=== PATIENT | male | born 1975 | race Caucasian/White ===

== ENCOUNTER 2016-03-24 11:51 | Inpatient (IN) | payer OTHER ==
[2016-03-24] VITALS (8 sets, daily range): BP systolic 133–173; BP diastolic 88–118
[~2016-03-24] VITALS: Ht 180.3 cm; Wt 81.6 kg
[~2016-03-24 11:51] MED LIST: AMLODIPINE BESYL5 M1 PO; ATIVAN0.5 M1 PO; ATIVAN0.5 MG PO; B-1100 MG PO; FOLIC ACID1 M1 PO; HYDROCHLOROTH12.5 M3 PO; LOPRESSOR 12.12.5 MG PO; LORAZEPAM1 MG PO; Theragran Vitamins PO; ZONISAMIDE50 M1 PO
--- NOTE | 2016-03-24 11:56 | NUR ---
40 Y/O MALE REQUESTING DETOX FROM ALCOHOL - DRINKS 10-20 BEERS DAILY, HAS BEEN DRINKING FOR YEARS. LAST DRINK 24 HOURS AGO. ADMITS TO HX SEIZURES, LAST SEIZURE, "POSSIBLY 2 DAYS AGO" - PT STATES HE FELL 2 DAYS AGO AND IS UNSURE IF HE HAD A SEIZURE, BRUISING NOTED TO L EAR. DENIES FEELING TREMULOUS AT THIS TIME. DENIES DRUG USE. DENIES SI/HI.
--- NOTE | 2016-03-24 12:19 | NUR ---
PT TO [facility] A SECURITY PAIGED FOR WANDING
--- NOTE | 2016-03-24 12:21 | ED PSYCHIATRIC COMPLAINT ---
History of Present Illness General Chief Complaint: ETOH/Drug Related Complaint Stated Complaint: ETOH DETOX Source: patient Exam Limitations: poor historian Vital Signs & Intake/Output Vital Signs & Intake/Output Vital Signs Date Time Temp Pulse Resp B/P Pulse O2 O2 Flow FiO2 Ox Delivery Rate 03/24 2111 142/84 03/24 2055 97.5 90 16 173/98 96 Room Air 03/24 2054 89 16 173/98 03/24 1930 97.3 90 16 138/89 96 03/24 1853 98.6 98 19 133/92 03/24 1853 98.6 98 133/92 03/24 1744 100.0 102 22 139/88 99 Room Air 03/24 1742 100.0 102 22 139/88 03/24 1628 99.8 106 18 141/88 100 Room Air 03/24 1620 99.8 106 22 141/88 03/24 1514 98.8 94 18 146/96 03/24 1514 98.8 86 18 146/96 99 Room Air 03/24 1447 97.5 114 20 158/88 97 Room Air 03/24 1445 97.5 114 20 158/88 03/24 1156 98.0 128 18 163/118 03/24 1156 98.0 128 18 163/118 96 Room Air Allergies Coded Allergies: kiwi (MOUTH BUBBLES UP PER PT 03/24/16) latex (RED, ITCHY 03/24/16) Reconcile Medications Ascorbate Calcium (Vitamin C) (Unknown Strength) TABLET (Unknown Dose) PO DAILY SUPPLEMENT (Reported) Aspirin (Ecotrin*) 81 MG TABLET.DR 1 TAB PO DAILY HEART/BLOOD (Reported) Cholecalciferol (Vitamin D3) (Unknown Strength) TABLET (Unknown Dose) PO DAILY SUPPLEMENT (Reported) Cyanocobalamin (Vitamin B-12) (Unknown Strength) TABLET (Unknown Dose) PO DAILY SUPPLEMENT (Reported) Triage Note: 40 Y/O MALE REQUESTING DETOX FROM ALCOHOL - DRINKS 10-20 BEERS DAILY, HAS BEEN DRINKING FOR YEARS. LAST DRINK 24 HOURS AGO. ADMITS TO HX SEIZURES, LAST SEIZURE, "POSSIBLY 2 DAYS AGO" - PT STATES HE FELL 2 DAYS AGO AND IS UNSURE IF HE HAD A SEIZURE, BRUISING NOTED TO L EAR. DENIES FEELING TREMULOUS AT THIS TIME. DENIES DRUG USE. DENIES SI/HI. Triage Nurses Notes Reviewed? yes HPI: 03/25/16 1 PM 40-year-old male presents to the emergency department for alcohol withdrawal requesting detox. The patient states he drinks every day. His last drink was yesterday. He says he thinks he had a seizure 2 days ago. He has a left periorbital ecchymosis. Left auricular ecchymosis. No septal necrosis. He also has ecchymosis to the right anterior chest. The onset of the symptoms were abrupt, the duration is really unknown, the severity is significant as his symptoms required to come to the emergency department for care. Past History Travel History Traveled to [facility] past 21 day No Medical History Any Pertinent Medical History? see below for history Neurological: seizure EENT: NONE Cardiovascular: hypertension Respiratory: NONE Gastrointestinal: NONE Hepatic: NONE Renal: NONE Musculoskeletal: disk herniation Psychiatric: NONE Endocrine: NONE Blood Disorders: DVT RT UPPER SHOULDER 1992 Cancer(s): NONE TOUR COORDINATOR/Reproductive: NONE History of MRSA: No History of VRE: No History of CDIFF: No Surgical History Surgical History: DISCECTOMY Psychosocial History Who do you live with Patient/Self Services at Home None What is your primary language Citizen Of [place] Tobacco Use: Current Daily Use Daily Tobacco Use Amount/Type: => 5 Cigarettes daily Family History Hx Contributory? No Review of Systems Review of Systems Constitutional: Denies: fever. EENTM: Denies: visual changes. Cardiovascular: Denies: chest pain. GI: Denies: abdominal pain. Genitourinary: Reports: no symptoms. Musculoskeletal: Reports: muscle stiffness. Skin: Denies: rash. Neurological/Psychological: Reports: anxiety, confusion, tremors. Denies: headache. Hematologic/Endocrine: Reports: bruising. Denies: bleeding. Immunologic/Allergic: Reports: no symptoms. Physical Exam Physical Exam General Appearance: well developed/nourished, no apparent distress, alert, awake , anxious Head: atraumatic Eyes: Bilateral: PERRL, EOMI. Ears, Nose, Throat: nasal congestion Neck: supple, full range of motion Respiratory: normal breath sounds, chest non-tender, no respiratory distress Cardiovascular: regular rate/rhythm Gastrointestinal: non-tender Extremities: normal range of motion Neurological/Psychiatric: awake, agitated, alert, anxious Appearance/Memory/Insight: disheveled Behavoir/Eye Contact/Speech: cooperative Skin: ecchymosis SAD PERSONS SAD PERSONS Response Value Male Sex? yes 1 Excessive Ethanol/Drug Use? yes 1 Single//? yes 1 Social Support? has no support 1 Total 4 SAD PERSONS Done? yes, patient not suicidal Progress Differential Diagnosis: drug intoxication, drug overdose, drug withdrawal, electrolyte abnormality, encephalitis, hypoglycemia, hypothyroidism, IC hem/mass /tumor, meningitis Plan of Care: Orders Procedure Date/time Status Nothing by Mouth 03/25 B Active PROTHROMBIN TIME 03/25 0500 Active MAGNESIUM 03/25 0500 Active HEPATIC FUNCTION PANEL 03/25 0500 Active CBC WITHOUT DIFFERENTIAL 03/25 0500 Active BASIC ELECTROLYTES PLUS BUN&CR 03/25 0500 Active Regular Diet 03/24 D Complete AMMONIA LEVEL 03/24 2015 Active Lab Add-on Test 03/24 1925 Active Pathway - chart 03/24 192 Active House Staff 03/24 192 Active Patient Data 03/24 192 Active SOCIAL WORK CONSULT 03/24 192 Active Code Status 03/24 192 Active Patient Data 03/24 191 Active Continuous Observation Monitor 03/24 1847 Active Admit to inpatient 03/24 1820 Active Vital Signs 03/24 1820 Active Code Status 03/24 1820 Complete Pathway - chart 03/24 1635 Active CIWA 03/24 1635 Active Pathway - chart 03/24 1634 Active CASE MANAGEMENT CONSULT 03/24 1632 Active MAGNESIUM 03/24 1354 Active FOLIC ACID 03/24 1354 Active VITAMIN B12 03/24 1354 Active CASE MANAGEMENT CONSULT 03/24 1304 Active Add-on Test (ER Only) 03/24 1303 Active Seizure Precautions 03/24 1303 Active CIWA 03/24 1303 Active LIPASE 03/24 1303 Active ETHANOL 03/24 1303 Active COMPREHENSIVE METABOLIC PANEL 03/24 1303 Active CBC WITHOUT DIFFERENTIAL 03/24 1303 Complete AMYLASE 03/24 1303 Active EKG 03/24 1303 Active Intake & Output 03/24 1232 Active URINE DRUG SCREEN FOR ER ONLY 03/24 1232 Complete URINALYSIS 03/24 1232 Complete Lab Add-on Test 03/24 UNK Active VTE Mechanical Prophylaxis 03/24 UNK Active Laboratory Tests 03/24/16 2016: Anion Gap 16, Estimated GFR > 60, BUN/Creatinine Ratio 36.0 H, Glucose 89, Calcium 9.8, Magnesium Pending, Total Bilirubin 1.5 H, AST 286 H, ALT 120 H, Alkaline Phosphatase 69, Ammonia 39 H, Total Protein 6.9, Albumin 4.4, Globulin 2.5, Albumin/Globulin Ratio 1.8, Amylase 93, Lipase 592 H, Vitamin B12 Pending, Folate Pending, Serum Alcohol < 10.0 03/24/16 1354: CBC w Diff NO MAN DIFF REQ, RBC 3.11 L, MCV 98.1 H, MCH 33.4 H, RDW 16.5 H, MPV 7.9, Gran % 72.6, Lymphocytes % 18.0 L, Monocytes % 9.0, Eosinophils % 0.2, Basophils % 0.2, Absolute Granulocytes 3.4, Absolute Lymphocytes 0.9 L, Absolute Monocytes 0.4, Absolute Eosinophils 0, Absolute Basophils 0, PUBS MCHC 34.1 03/24/16 1236: Urine Opiates Screen 228.00, Methadone Screen < 40, Barbiturate Screen < 60, Ur Phencyclidine Scrn < 6.00, Amphetamines Screen < 100, U Benzodiazepines Scrn < 85, Urine Cocaine Screen < 50, Urine Cannabis Screen < 5.00, Urinalysis LIGHT H , Urine Color JACQUELINE, Urine Clarity CLEAR, Urine pH 6.0, Ur Specific [place] 1.025, Urine Protein 30 H, Urine Ketones 15 H, Urine Nitrite NEG, Urine Bilirubin NEG@ICTO, Urine Urobilinogen 1.0, Ur Leukocyte Esterase NEG, Ur Microscopic SEDIMENT EXAMINED, Urine RBC 3-5, Urine WBC RARE, Ur Epithelial Cells FEW, Urine Mucus MANY H, Urine Hemoglobin SMALL H, Urine Glucose NEG Initial ED EKG: NSR Departure Departure Disposition: STILL A PATIENT Condition: Stable Clinical Impression Primary Impression: Alcohol withdrawal Secondary Impressions: Alcohol hallucinosis Referrals: PATIENT HAS NO PRIMARY CARE DR (PCP/Family) Departure Forms: Customer Survey General Discharge Information Comments CT scan IMPRESSION: No acute intracranial process or discrete facial bone fracture. DICTATED BY: ENRIQUE LITTLE MD DATE/TIME DICTATED:03/24/161340 AGILE TESTER:PHILIP DATE/TIME TRANSCRIBED:03/24/161340 CONFIDENTIAL, DO NOT COPY WITHOUT APPROPRIATE AUTHORIZATION. <Electronically signed in Other Vendor System> SIGNED BY: ENRIQUE LITTLE MD 03/24/16 1351 Admission Note Spoke With: WENDY MCMAHON MD Documentation of Exam: Documentation of any treatments & extenuating circumstances including Concerns Regarding Discharge (functional status, medication knowledge or non-compliance, living conditions, etc.) that warrant an admission rather than observation: [The patient needs admission for IV Ativan, neuro checks every 4 hours, ICU level care] Alcohol Withdrawl Admission ED Alcohol Detox Admission d/t: DTs/Seizure w/i last year, Alcohol Hallucinosis
--- NOTE | 2016-03-24 12:30 | NUR ---
SECURITY AT BEDSIDE WANDING PT PT STS DENIES ANY SI/HI AT PRESENT STS HE HAS WITHDRAWAL SEIZURES AND UNSURE IF THE BRUISING TO HIS LEFT EAR AND EYE ARE FROM UNKNOWN AND UNWITNESSED SIEZURE. PT CHANGING NOW
--- NOTE | 2016-03-24 12:40 | NUR ---
MD LION AT BEDSIDE TO EVAL PT PT WAS HAVING A HARD TIME TAKING HAT OFF AND ENCOURAGED PT TO TAKE OFF
[2016-03-24] MEDS ORDERED: ASPIRIN EC81 M1 PO (12:41)
[2016-03-24] MEDS ORDERED: VITAMIN B-121000 MC3 PO (12:42)
[2016-03-24] MEDS ORDERED: VITAMIN C500 M6 PO (12:42)
[2016-03-24] MEDS ORDERED: VITAMIN D31000 UNI2 PO (12:42)
--- NOTE | 2016-03-24 13:39 | RADIOLOGY REPORT ---
EXAMINATION: XR CHEST CLINICAL INFORMATION: Fall. Evaluate for fracture. COMPARISON: None. TECHNIQUE: PA and lateral views of the chest were obtained. FINDINGS: The lungs are well expanded. There is no focal consolidation, edema, or effusion. No pneumothorax. The cardiomediastinal silhouette is within normal limits. No acute osseous abnormality. IMPRESSION: Clear lungs. No displaced fractures are seen.
--- NOTE | 2016-03-24 13:51 | CT SCAN REPORT ---
EXAMINATION: CT HEAD WITHOUT CONTRAST CT FACIAL BONES WITHOUT CONTRAST CLINICAL INFORMATION: 40-year-old man with fall. COMPARISON: None. TECHNIQUE: Imaging was performed from the skull base to vertex without intravenous administration of contrast. In addition, helical noncontrast CT imaging was acquired through the facial bones and source images were reviewed along with axial reconstructions and sagittal and coronal MPRs. DLP: 742 mGy-cm FINDINGS: HEAD: No intracranial mass, hemorrhage, or midline shift is visualized. The ventricles and sulci are prominent for the patient's age, suggesting chronic volume loss. No extra-axial collections are identified. FACIAL BONES: There is no evidence of an acute facial bone fracture. Minimal mucosal thickening is seen along the floor of the right maxillary sinus. No significant dental disease is visualized. The orbits are unremarkable in appearance. A benign-appearing fibro-osseous lesion is seen in the right frontal bone lateral to the right frontal sinus and above the right orbit, measuring about 1.5 cm in diameter, perhaps reflecting focal fibro-osseous dysplasia or a hemangioma. IMPRESSION: No acute intracranial process or discrete facial bone fracture.
--- NOTE | 2016-03-24 14:00 | NUR ---
LABS DRAWN BY MARIKA RIVAS
[2016-03-24 14:12] LABS: ABSOLUTE BASOPHIL COUNT 0 /CUMM (0.0-0.2); ABSOLUTE EOSINOPHIL COUNT 0 /CUMM (0.0-0.7); ABSOLUTE GRANULOCYTE CT 3.4 /CUMM (1.4-6.5); ABSOLUTE LYMPH COUNT 0.9 /CUMM (1.2-3.4); ABSOLUTE MONOCYTE COUNT 0.4 /CUMM (0.10-0.60); BASOPHIL % 0.2 % (0.0-2.0); EOSINOPHIL % 0.2 % (0-5); GRANULOCYTE % 72.6 % (42.2-75.2); HEMATOCRIT 30.5 % (42-52); MEAN CORPUSCULAR HGB 33.4 PG (27.0-31.0); MEAN CORPUSCULAR HGB CONC 34.1 G/DL (33.0-37.0); MEAN CORPUSCULAR VOLUME 98.1 FL (80.0-94.0); MEAN PLATELET VOLUME 7.9 FL (7.4-10.4); RBC DISTRIBUTION WIDTH 16.5 % (11.5-14.5); RED BLOOD CELL CT 3.11 /CUMM (4.70-6.10); WHITE BLOOD CELL COUNT 4.8 /CUMM (4.8-10.8)
[2016-03-24 14:19] LABS: PLATELET COUNT 70 /CUMM (130-400)
--- NOTE | 2016-03-24 14:42 | NUR ---
PT MEDICATED WITH NICOTINE PATCH TO LT SHOULDER ORDERED
--- NOTE | 2016-03-24 14:58 | NUR ---
PT SHOWS NO S/S OF DETOX AT PRESENT
--- NOTE | 2016-03-24 15:33 | NUR ---
PT GIVEN MEAL TRAY
--- NOTE | 2016-03-24 16:09 | NUR ---
PT NOTED CROUCHING ON FLOOR BY SECURITY, WHEN ASKED BY SECURITY WHAT HE WAS DOING PT STS HE WAS LOOKING FOR HIS SLIPPERS. THIS NURES ADDRESSED PT AND HE INSISTED THAT HE HAD TWO SLIPPERS ON THE FLOOR AND WAS LOOKING FOR IT. PT REDIRECTED AND MD INFORMED OF PT'S ACTION AND VITALS TAKEN
--- NOTE | 2016-03-24 16:20 | NUR ---
PT CONTINUES TO HAVE CONVERSATION WITH HIMSELF REDIRECTED AND MD AGAIN INFORMED OF NEEDING MEDS FOR PT
--- NOTE | 2016-03-24 16:50 | NUR ---
PT MEDICATED ORDERED
--- NOTE | 2016-03-24 17:15 | NUR ---
PT WAS A DIFFICULT STICK AND ANOTHER NURSE ATTEMPTED TWICE WITH NO SUCCESS. ATTEMPTED AND IV ESTABLISHED. PT NOTED TO BE VERY PARANOID AND REQUESTING TO CALL FAMILY AND REFUSING IV MEDICATION. SECURITY CALLED AND PT AFTER SPEAKING WITH SISTER AGREEABLE TO TAKE MEDICATION AND REDIRECTABLE
--- NOTE | 2016-03-24 17:23 | NUR ---
PT CONTINUES TO VERBALLY HALLUCINATE IN [facility] WAY AND SPEAKING TO SELF.
--- NOTE | 2016-03-24 17:27 | NUR ---
03/24 CASE MGMT- PT REQUESTING ETOH DETOX CIWA 16 [address] [facility] AUTH REQUEST PENDING. CASE MGMT WILL CONTINUE TO FOLLOW.
--- NOTE | 2016-03-24 18:05 | NUR ---
PT MOVED TO A ROOM AND NOTED TO BE SHAKING BUT NO SEIZURE ACTIVITY NOTED. PT WAS MEDICATED AGAIN AND PLACED ON MONITOR AND ATTEMPTING TO REDIRECT WITH VISUAL HALLUCINATION. MD INFORMED OF PT'S STATUS
--- NOTE | 2016-03-24 18:16 | NUR ---
PT CONTINUES TO VISUALLY HALLUCINATE AND HANVING A CONVERSATION WITH SELF. SITTER NOW AT BEDSIDE WITH PT
--- NOTE | 2016-03-24 18:40 | NUR ---
HOUSE STAFF ATTEMPTED TO EVAL PT
--- NOTE | 2016-03-24 19:13 | Admission Certification ---
Admission Certification Certification Statement - As attending physician, I certify that at the time of - admission, based on clinical presentation, severity of - symptoms, need for further diagnostic testing and - therapeutic interventions, and risk of adverse outcomes - without in-hospital treatment, in my clinical assessment, - this patient requires an acute hospital stay for a minimum - of two nights or longer. I have also considered psychsocial - factors such as support system, advanced age, financial - issues, cognitive issues, and failed out-patient treatments, - past re-admission history, safety of patient, and lack of - compliance as applicable. Specific rationale supporting this admission is: Alcohol withdrawal requiring ativan drip.
--- NOTE | 2016-03-24 19:30 | NUR ---
PT SLEEPING. AROUSABLE TO TACTILE STIMULATION. RESP UNLABORED. NSR ON THE MONITOR. VSS. WILL CONTINUE TO MONITOR.
--- NOTE | 2016-03-24 19:54 | History & Physical ---
MARIMAR FOSS 03/24/161930: General Information and HPI Source of Information: family, old records Exam Limitations: confusion History of Present Illness: He is 40-year-old male with past medical history of alcohol abuse and multiple previous hospital admissions for alcohol detox, alcohol withdrawal seizures, left upper extremity spontaneous DVT (was on Coumadin for 1 year), history of hypertension not taking any antihypertensive now (was prescribed HCTZ and amlodipine), history of back surgery for herniated disc was brought in by sister and Aunt for alcohol detox. Upon my evaluation patient was completely confused and hallucinating. I called his sister Ayse ([phone]). According to his sister patient drinks heavy amount of alcohol every day and he has been drinking for last 20 years. He is also turned every day smoker. Smokes half pack per day for last 20 years. Patient had a fall 3 weeks ago and broke his front tooth. He went to [facility] oral clinic yesterday where he was found tachycardiac and sent to ER for evaluation from where he was admitted in [facility] as he had a fall again within 2 days resulting in left eye and ear bruise. She also reported that she saw him totally intoxicated 3 days ago and she was also suspecting that he might have a seizure that resulted in his fall and bruises. She does not know what treatment he got at [facility] but thinks that he was treated for alcohol detox. He stayed there only for 14 hours and left AMA this morning. He saw him walking in the house confused with unsteady gait. He was disoriented. After she talked to him he was willing to go to hospital for detox. Sister also reports that his last drink was yesterday. He saw 2 gallons of vodka in his room and 1 was empty. On his previous admissions he has always been referred to intensive outpatient programs and [facility] meetings but he never followed up with them in past. She denies that he takes any recreational drugs but also says that he always lies. He lives with his father. Unemployed for last 6 months. In ER initially he was oriented but later on started having visual hallucinations and confusion. He was given total 6 mg of Ativan in ER. A safety monitor was at bedside. Allergies/Medications Allergies: Coded Allergies: kiwi (MOUTH BUBBLES UP PER PT 03/24/16) latex (RED, ITCHY 03/24/16) Home Med list Ascorbate Calcium (Vitamin C) (Unknown Strength) TABLET (Unknown Dose) PO DAILY SUPPLEMENT (Reported) Aspirin (Ecotrin*) 81 MG TABLET. 1 TAB PO DAILY HEART/BLOOD (Reported) Cholecalciferol (Vitamin D3) (Unknown Strength) TABLET (Unknown Dose) PO DAILY SUPPLEMENT (Reported) Cyanocobalamin (Vitamin B-12) (Unknown Strength) TABLET (Unknown Dose) PO DAILY SUPPLEMENT (Reported) Compliance With Home Meds: UNKNOWN Past History Travel History Traveled to [place] past 21 day No Medical History Neurological: seizure EENT: NONE Cardiovascular: hypertension Respiratory: NONE Gastrointestinal: NONE Hepatic: NONE Renal: NONE Musculoskeletal: disk herniation Psychiatric: NONE Endocrine: NONE Blood Disorders: DVT RT UPPER SHOULDER 1991 Cancer(s): NONE 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 Ambulation: independent IADLs Independent: shopping, housework, finances, food prep, telephone, transportation , medication admin. Employment History Employment Unemployed Review of Systems Review of Systems Constitutional: Reports: see HPI. Exam & Diagnostic Data Last 24 Hrs of Vital Signs/I&O Vital Signs Date Time Temp Pulse Resp B/P Pulse O2 O2 Flow FiO2 Ox Delivery Rate 03/24 185 98.6 98 19 133/92 03/24 1853 98.6 98 133/92 03/24 1744 100.0 102 22 139/88 99 Room Air 03/24 1742 100.0 102 22 139/88 03/24 1628 99.8 106 18 141/88 100 Room Air 03/24 1620 99.8 106 22 141/88 03/24 1514 98.8 94 18 146/96 03/24 1514 98.8 86 18 146/96 99 Room Air 03/24 1447 97.5 114 20 158/88 97 Room Air 03/24 1445 97.5 114 20 158/88 03/24 1156 98.0 128 18 163/118 03/24 1156 98.0 128 18 163/118 96 Room Air Intake & Output 03/24 1600 03/24 0800 03/24 0000 Intake Total Output Total 1 Balance -1 Output, Urine 1 Patient 161 lb Weight Physical Exam General Appearance confused, hallucinating Skin left eye and left ear bruises. scratches on left arm , large bruise right armpit Neck Supple Cardiovascular No Murmurs, tachycardia Lungs Clear to Auscultation Abdomen Soft, No Tenderness, non distended, no stigmata of liver disease Neurological confused, disoriented, unable to follow commands Extremities No Edema Last 24 Hrs of Labs/Noah: Laboratory Tests 03/24/16 1354: Anion Gap 16, Estimated GFR > 60, BUN/Creatinine Ratio 36.0 H, Glucose 89, Calcium 9.8, Total Bilirubin 1.5 H, AST 286 H, ALT 120 H, Alkaline Phosphatase 69, Total Protein 6.9, Albumin 4.4, Globulin 2.5, Albumin/Globulin Ratio 1.8, Amylase 93, Lipase 592 H, Vitamin B12 Pending, Folate Pending, CBC w Diff NO MAN DIFF REQ, RBC 3.11 L, MCV 98.1 H, MCH 33.4 H, RDW 16.5 H, MPV 7.9, Gran % 72.6, Lymphocytes % 18.0 L, Monocytes % 9.0, Eosinophils % 0.2, Basophils % 0.2, Absolute Granulocytes 3.4, Absolute Lymphocytes 0.9 L, Absolute Monocytes 0.4, Absolute Eosinophils 0, Absolute Basophils 0, PUBS MCHC 34.1, Serum Alcohol < 10.0 03/24/16 1236: Urine Opiates Screen 228.00, Methadone Screen < 40, Barbiturate Screen < 60, Ur Phencyclidine Scrn < 6.00, Amphetamines Screen < 100, U Benzodiazepines Scrn < 85, Urine Cocaine Screen < 50, Urine Cannabis Screen < 5.00, Urinalysis LIGHT H , Urine Color JACQUELINE, Urine Clarity CLEAR, Urine pH 6.0, Ur Specific Peterman 1.025, Urine Protein 30 H, Urine Ketones 15 H, Urine Nitrite NEG, Urine Bilirubin NEG@ICTO, Urine Urobilinogen 1.0, Ur Leukocyte Esterase NEG, Ur Microscopic SEDIMENT EXAMINED, Urine RBC 3-5, Urine WBC RARE, Ur Epithelial Cells FEW, Urine Mucus MANY H, Urine Hemoglobin SMALL H, Urine Glucose NEG Diagnostic Data EKG Results Normal sinus rhythm with heart rate [address]-T wave changes QTc 455 CXR Results Normal Other Results Maxillofacial and head CT did not show any acute pathology Assessment/Plan Assessment: He is 40-year-old male with past medical history of heavy alcohol abuse and multiple previous hospital admissions for alcohol detox, alcohol withdrawal seizures, left upper extremity spontaneous DVT, hypertension is going to be admitted in critical care unit with 1. Alcohol withdrawal syndrome. Confusion and hallucination with high CIWA scores. Needing Ativan drip. Last drink yesterday. 2. Alcoholic hepatitis 3. Macrocytic anemia due to alcohol abuse 4. Thrombocytopenia. Most likely due to alcohol abuse 5. U tox mildly positive for opiates. Patient was at [facility] for alcohol detox. Left AMA this morning. Might got opiates in hospital. Sister denies any recreational of drug use. 6. Fall resulting in multiple bruises. ? seizure and then fall. CT head and maxillofacial CT are negative for any fractures or bleed. 7. History of hypertension. Blood pressure was high upon admission, 163/118 and later on came down to 133/92. We'll hold antihypertensives for now. Monitor vitals closely. CIWA protocol. Will start him on Ativan drip with slow rate and titrate up accordingly. Banana bag. Continue sitter. Keep patient nothing by mouth. Fall and seizure precautions. In case of agitation or irritability can give him small dose of Haldol. QTc 455. Will monitor platelet count. No evidence of active bleeding. Monitor LFTs daily. Will check coags in a.m. Will also check vitamin B12 and folate. Social work consult. Alps for DVT prophylaxis. Full code. As Ranked By This Provider Problem List: 1. Alcohol withdrawal syndrome 2. Alcoholic hepatitis Core Measures/Miscellaneous Acute Coronary Syndrome ACS Diagnosis: No Cerebrovascular Accident CVA/TIA Diagnosis: No Congestive Heart Failure CHF Diagnosis: No Venous Thromboembolism VTE Risk Factors: Acute medical illness, Previous VTE, Smoking VTE Prophylaxis Ordered Inpt: Mechanical (ALPS/TEDS) No Mech VTE prophylaxis d/t: No contraindications No VTE Pharm Prophylaxis d/t: Medical contraindication (throbocytopenia) VTE Diagnosis: No VTE Type: NONE VTE Confirmed by (Test): NONE Severe Sepsis Severe Sepsis Present: No Septic Shock Septic Shock Present: No Miscellaneous Documentation Attending Case Discussed With: EBENEZER MCMAHON MDMIKE Primary Care Physician: PATIENT HAS NO PRIMARY CARE DR Patient sees these Specialists none Level of Patient Care: Critical Care (CRI) LISANDRO LA, [facility] 03/25/16 0056: Attending MD Review Statement Attending Statement Attending MD Statement: examined this patient, discuss w/resident/PA/SHELTER CASE MANAGER, agreed w/resident/PA/SHELTER CASE MANAGER Attending Assessment/Plan: 40 yo M smoker, with h/o alcohol dependence, multiple detoxes in the past (last Nov 2015), alcohol withdrawal seizures, HTN (not on meds), previous DVT, brought in by family for alcohol detox. Per our ER records, patient was oriented on ER arrival and reported a seizure 2 days ago. However, he became confused and started hallucinating few hours later. Hence, history obtained from sister. Apparently patient lives by self and has been consuming about alcohol everyday, unclear as to the amount and the last drink. Patient had a fall 3 weeks ago, fell to his face and broke his tooth. Sister recollects that she had not seen the bruise 3 days ago when she saw him at their uncle's . So most likely he fell 2 days ago, ?seizure - bruising his left eye and ear. Yesterday, he was admitted to [facility] for alcohol detox but he left AMA. Unable to obtain ROS. VSS. Exam: awake, lethargic, confused, mumbling words, not making sense, left periorbital and left auricular ecchymosis, large right chest (under armpit) hematoma. Very dry mucuous membranes. No obvious tongue bite. No pallor or jaundice. Chest clear, Heart S1S2 tachycardic. Abd soft, NT. Labs: macrocytic anemia, Plt 70, Na 136, T. bili 1.5, AST 286, ALT 120, ammonia 39, lipase 592, Urine ketones+, Utox neg, Alcohol < 10, CXR clear, CT head/facial bones no acute fracture or IC process. EKG: Sinus tachycardia. 1. Alcohol withdrawal/ hallucinosis with impending DT's. ICU admit, CIWA, aspiration, fall and seizure precautions, IV Ativan titrate based on CIWA, banana bag, NPO for now, IV fluids, IV PPI, Psych and social work consult when able. Maintain sitter for safety. Monitor BP, no need for anti-hypertensive at this point. 2. Alcoholic liver disease with transaminitis. Trend LFTs. Hep panel (Nov 2015) was negative. Consider RUQ ultrasound to assess liver architexture when patient more stable. 3. Thrombocytopenia and macrocytic anemia in the setting of alcohol use. Check peripheral smear and PT/INR. Check TSH, B12, folic acid. 4. Large right chest hematoma in the setting of recent seizure/ unwitnessed fall. Monitor, avoid aspirin or any other blood products. 5. Lipase not significant enough to diagnose pancreatitis. DVT ppx Alps. Full code. TTS > 45 mins
--- NOTE | 2016-03-24 20:23 | NUR ---
PHARMACY WORKING ON ATIVAN DRIP. WILL BRING UP WHEN READY
--- NOTE | 2016-03-24 20:30 | NUR ---
VJ MARTINEZ Nurse Note by: DAISY SANDHU I agree with the PAYROLL LEAD findings/evaluation of this patient's condition. Entered by: DAISY SANDHU Date: 03/24/16 Time: 2030
--- NOTE | 2016-03-24 20:31 | NUR ---
PT HAS BED ASSIGNMENT 108
--- NOTE | 2016-03-24 21:21 | NUR ---
ATIVAN AND VITAMIN BAG INFUSING. RESP UNLABORED. NSR NO APPARENT DISTRESS
--- NOTE | 2016-03-24 22:00 | NUR ---
ADMISSION NOTE- Patient arrived to ICU at 2200. He is transferred to ICU bed and placed on monitors without incident. Patient is visually hallucinating and is seen picking at the air and talking about objects that are not visible to staff. There is a 1:1 sitter at the bedside for impending withdrawals and history of seizures. He is drowsy but arousable on the Ativan gtt, and has a SAS score of 3. Patient is SR/ST on the monitor and BP is 150/100. Patient is on RA with O2 sats 96-98%, lungs CTA. There are 2 patent IV's placed, the Ativan gtt is at 2mg/hr, Banana bag at 125ml/hr and D5-1/2NS at 75ml/hr. Patient is able to void in the urinal after some encouragement. Patient has many bruised areas including: left ear, left eye, left forearm, right shoulder and underarm, and right mid-abdomen on the rib line. There is a scratch noted within the bruise on the Left Forearm. Per patient, all bruises are from falls. While asking patient admitting questions, it was difficult to keep patient stimulated and awake and several items he was unable to answer. Will follow up when off sedation. Will cont to monitor.
[2016-03-25] VITALS (9 sets, daily range): BP systolic 114–150; BP diastolic 64–87
[2016-03-25 05:16] LABS: ABSOLUTE BASOPHIL COUNT 0 /CUMM (0.0-0.2); ABSOLUTE EOSINOPHIL COUNT 0 /CUMM (0.0-0.7); ABSOLUTE LYMPH COUNT 1.1 /CUMM (1.2-3.4); ABSOLUTE MONOCYTE COUNT 0.3 /CUMM (0.10-0.60); BASOPHIL % 0.9 % (0.0-2.0); EOSINOPHIL % 0.7 % (0-5); GRANULOCYTE % 57.3 % (42.2-75.2); HEMATOCRIT 29.6 % (42-52); MEAN CORPUSCULAR HGB 34.2 PG (27.0-31.0); MEAN CORPUSCULAR HGB CONC 34.6 G/DL (33.0-37.0); MEAN CORPUSCULAR VOLUME 98.8 FL (80.0-94.0); MEAN PLATELET VOLUME 7.9 FL (7.4-10.4); PLATELET COUNT 68 /CUMM (130-400); RBC DISTRIBUTION WIDTH 17.1 % (11.5-14.5); WHITE BLOOD CELL COUNT 3.5 /CUMM (4.8-10.8)
[2016-03-25 05:18] LABS: PT 10.2 SEC (9.4-12.5)
--- NOTE | 2016-03-25 06:35 | NUR ---
0545- Patient is have periods of apnea and is desatting to 87-90%. Patient placed on 2LNC. Will cont to monitor.
--- NOTE | 2016-03-25 08:20 | Cons- CRCU ---
CLARIBEL FAROOQ 03/25/16 0817: General Information and HPI Consulting Request Date of Consult: 03/25/16 Requested By: Dr. Jones Reason for Consult: Alcohol withdrawl Source of Information: old records Exam Limitations: clinical condition History of Present Illness: He is 40-year-old male with past medical history of alcohol abuse and multiple previous hospital admissions for alcohol detox, alcohol withdrawal seizures, left upper extremity spontaneous DVT (was on Coumadin for 1 year), history of hypertension not taking any antihypertensive now (was prescribed HCTZ and amlodipine), history of back surgery for herniated disc was brought in by sister and Aunt for alcohol detox. Upon my evaluation patient was completely confused and hallucinating. I called his sister Ayse ([phone]). According to his sister patient drinks heavy amount of alcohol every day and he has been drinking for last 20 years. He is also turned every day smoker. Smokes half pack per day for last 20 years. Patient had a fall 3 weeks ago and broke his front tooth. He went to [facility] oral clinic yesterday where he was found tachycardiac and sent to ER for evaluation from where he was admitted in [facility] as he had a fall again within 2 days resulting in left eye and ear bruise. She also reported that she saw him totally intoxicated 3 days ago and she was also suspecting that he might have a seizure that resulted in his fall and bruises. She does not know what treatment he got at [facility] but thinks that he was treated for alcohol detox. He stayed there only for 14 hours and left AMA this morning. He saw him walking in the house confused with unsteady gait. He was disoriented. After she talked to him he was willing to go to hospital for detox. Sister also reports that his last drink was yesterday. He saw 2 gallons of vodka in his room and 1 was empty. On his previous admissions he has always been referred to intensive outpatient programs and [facility] meetings but he never followed up with them in past. She denies that he takes any recreational drugs but also says that he always lies. He lives with his father. Unemployed for last 6 months. In ER initially he was oriented but later on started having visual hallucinations and confusion. He was given total 6 mg of Ativan in ER. He was subsequently admitted to the ICU for alcohol withdrawl requiring Ativan ip. Allergies/Medications Allergies: Coded Allergies: kiwi (MOUTH BUBBLES UP PER PT 03/24/16) latex (RED, ITCHY 03/24/16) Home Med List: Ascorbate Calcium (Vitamin C) (Unknown Strength) TABLET (Unknown Dose) PO DAILY SUPPLEMENT (Reported) Aspirin (Ecotrin*) 81 MG TABLET.DR 1 TAB PO DAILY HEART/BLOOD (Reported) Cholecalciferol (Vitamin D3) (Unknown Strength) TABLET (Unknown Dose) PO DAILY SUPPLEMENT (Reported) Cyanocobalamin (Vitamin B-12) (Unknown Strength) TABLET (Unknown Dose) PO DAILY SUPPLEMENT (Reported) Current Medications: Current Medications Sig/Elias Start time Last Medication Dose Route Stop Time Status Admin Cyanocobalamin/ 1 BAG DAILY@03/24 AC 03/24 Thiamine/Pyridoxine IV 2052 Dextrose/Water 1,000 ML Dextrose/Sodium 1,000 ML Q13H 03/24 193 AC 03/24 Chloride IV 203 Folic Acid 0 .STK-MED ONE 03/24 1641 DC PO Folic Acid 1 MG DAILY 03/24 1634 DC 03/24 PO 03/26 1001 1700 Lorazepam 0.5 MG ONCE 03/29 0000 DC PO 03/29 0001 Lorazepam 0.5 MG Q6H 03/28 0000 DC PO 03/28 1801 Lorazepam 0.5 MG ONCE ONE 03/27 1800 DC PO 03/27 1801 Lorazepam 1 MG Q6H 03/27 0000 DC PO 03/27 1201 Lorazepam 1.5 MG Q12H 03/26 0600 DC PO 03/26 1801 Lorazepam 1 MG Q12H 03/26 0000 DC PO 03/26 1201 Lorazepam 1.5 MG Q6 03/25 0600 DC PO 03/25 1801 Lorazepam 50 MG ONCE ONE 03/24 1930 AC 03/24 Sodium Chloride 500 ML IV 03/26 2129 2053 Lorazepam 2 MG Q6 03/24 1800 DC PO 03/25 0001 Lorazepam 0 .STK-MED ONE 03/24 1747 DC .ROUTE Lorazepam 2 MG ONE ONE 03/24 1745 DC 03/24 IV 03/24 1746 1804 Lorazepam 2 MG ONE ONE 03/24 1700 DC 03/24 IV 03/24 1701 1715 Lorazepam 0 .STK-MED ONE 03/24 1650 DC PO Lorazepam 2 MG ONCE ONE 03/24 1645 DC 03/24 PO 03/24 1646 1700 Lorazepam 2 MG Q2P PRN 03/24 1645 DC PO Lorazepam 1 MG Q2P PRN 03/24 1645 DC PO Lorazepam 0 .STK-MED ONE 03/24 1643 DC .ROUTE Magnesium Sulfate 1 GM ONCE ONE 03/25 0845 AC N/A 1 UNIT IV 03/25 1044 Magnesium Sulfate 1 GM ONCE ONE 03/25 0645 DC N/A 1 UNIT IV 03/25 0844 Multivitamins 0 .STK-MED ONE 03/24 1641 DC PO Multivitamins 1 TAB DAILY 03/24 1634 DC 03/24 PO 1700 Nicotine 21 MG ONCE ONE 03/24 1545 DC 03/24 TOP 03/24 1546 1530 Nicotine 0 .STK-MED ONE 03/24 1441 DC TOP Potassium Chloride 10 MEQ ONCE ONE 03/25 0630 DC 03/25 IV 03/25 0631 0640 Potassium Chloride 10 MEQ ONCE ONE 03/25 0630 DC IV 03/25 0631 Potassium Chloride 10 MEQ ONCE ONE 03/25 0630 DC IV 03/25 0631 Thiamine HCl 0 .STK-MED ONE 03/24 1641 DC PO Thiamine HCl 100 MG DAILY 03/24 1634 DC 03/24 PO 03/26 1001 1700 Past History Travel History Traveled to [place] past 21 day No Medical History Blood Transfusion Hx: No Neurological: seizure EENT: NONE Cardiovascular: hypertension Respiratory: NONE Gastrointestinal: NONE Hepatic: NONE Renal: NONE Musculoskeletal: disk herniation Psychiatric: NONE Endocrine: NONE Blood Disorders: DVT RT UPPER SHOULDER 1992 Cancer(s): NONE 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 Ambulation: independent IADLs Independent: shopping, housework, finances, food prep, telephone, transportation , medication admin. Employment History Employment: Unemployed Exam & Diagnostic Data Last 24 Hrs of Vital Signs/I&O Vital Signs Date Time Temp Pulse Resp B/P Pulse O2 O2 Flow FiO2 Ox Delivery Rate 03/25 599 98.4 88 20 119/87 03/25 0400 98.4 90 22 138/70 03/25 0200 98.1 86 22 131/87 03/25 0000 98.1 88 14 134/84 03/24 2200 98.1 88 14 154/110 03/24 2112 142/84 03/24 2056 97.5 90 16 173/98 96 Room Air 03/24 205 89 16 173/98 03/24 1930 97.3 90 16 138/89 96 03/24 1853 98.6 98 19 133/92 03/24 1853 98.6 98 133/92 03/24 1744 100.0 102 22 139/88 99 Room Air 03/24 1742 100.0 102 22 139/88 03/24 1628 99.8 106 18 141/88 100 Room Air 03/24 1620 99.8 106 22 141/88 03/24 1514 98.8 94 18 146/96 03/24 1514 98.8 86 18 146/96 99 Room Air 03/24 1447 97.5 114 20 158/88 97 Room Air 03/24 1445 97.5 114 20 158/88 03/24 1156 98.0 128 18 163/118 03/24 1156 98.0 128 18 163/118 96 Room Air Intake & Output 03/25 1600 03/25 0800 03/25 0000 Intake Total 1260 Output Total 400 Balance 1260 -400 Intake, IV 1260 Output, Urine 400 Patient 180 lb Weight Physical Exam General Appearance: lethargic, intoxicated Head: ecchymosis (onleft eye) Eyes: Bilateral: PERRL, EOMI. Neck: supple Respiratory: normal breath sounds, chest non-tender, no respiratory distress, quiet respiration, lungs clear, has a bruise aslon his right axilla Cardiovascular: regular rate/rhythm Gastrointestinal: normal bowel sounds, soft, non-tender Extremities: no edema Cranial Nerves: PERRL Reflexes: 2+: knee (R), knee (L). Last 48 Hrs of Labs/Noah: Laboratory Tests 03/25/16 0430: Anion Gap 13, Estimated GFR > 60, BUN/Creatinine Ratio 20.0, Magnesium 1.5 L, Total Bilirubin 1.2, Direct Bilirubin 0.5 H, AST 185 H, ALT 95 H, Alkaline Phosphatase 62, Total Protein 5.8 L, Albumin 3.5, PT 10.2, INR 0.97, CBC w Diff NO MAN DIFF REQ, RBC 3.00 L, MCV 98.8 H, MCH 34.2 H, RDW 17.1 H, MPV 7.9, Gran % 57.3, Lymphocytes % 32.9, Monocytes % 8.2, Eosinophils % 0.7, Basophils % 0.9, Absolute Granulocytes 2.0, Absolute Lymphocytes 1.1 L, Absolute Monocytes 0.3, Absolute Eosinophils 0, Absolute Basophils 0, PUBS MCHC 34.6 03/24/16 2016: Anion Gap 16, Estimated GFR > 60, BUN/Creatinine Ratio 36.0 H, Glucose 89, Calcium 9.8, Magnesium 1.6, Total Bilirubin 1.5 H, AST 286 H, ALT 120 H, Alkaline Phosphatase 69, Ammonia 39 H, Total Protein 6.9, Albumin 4.4, Globulin 2.5, Albumin/Globulin Ratio 1.8, Amylase 93, Lipase 592 H, Vitamin B12 633, Folate 5.3, Serum Alcohol < 10.0 03/24/16 1354: CBC w Diff NO MAN DIFF REQ, RBC 3.11 L, MCV 98.1 H, MCH 33.4 H, RDW 16.5 H, MPV 7.9, Gran % 72.6, Lymphocytes % 18.0 L, Monocytes % 9.0, Eosinophils % 0.2, Basophils % 0.2, Absolute Granulocytes 3.4, Absolute Lymphocytes 0.9 L, Absolute Monocytes 0.4, Absolute Eosinophils 0, Absolute Basophils 0, PUBS MCHC 34.1 03/24/16 1236: Urine Opiates Screen 228.00, Methadone Screen < 40, Barbiturate Screen < 60, Ur Phencyclidine Scrn < 6.00, Amphetamines Screen < 100, U Benzodiazepines Scrn < 85, Urine Cocaine Screen < 50, Urine Cannabis Screen < 5.00, Urinalysis LIGHT H , Urine Color JACQUELINE, Urine Clarity CLEAR, Urine pH 6.0, Ur Specific [place] 1.025, Urine Protein 30 H, Urine Ketones 15 H, Urine Nitrite NEG, Urine Bilirubin NEG@ICTO, Urine Urobilinogen 1.0, Ur Leukocyte Esterase NEG, Ur Microscopic SEDIMENT EXAMINED, Urine RBC 3-5, Urine WBC RARE, Ur Epithelial Cells FEW, Urine Mucus MANY H, Urine Hemoglobin SMALL H, Urine Glucose NEG Diagnostic Data CXR Results FINDINGS: The lungs are well expanded. There is no focal consolidation, edema, or effusion. No pneumothorax. The cardiomediastinal silhouette is within normal limits. No acute osseous abnormality. IMPRESSION: Clear lungs. No displaced fractures are seen. Other Results SERVICE DATE: 03/24/16 EXAM TYPE: CAT - CT HEAD WO IV CONTRAST; CT MAXILLOFACIAL W/O CON EXAMINATION: CT HEAD WITHOUT CONTRAST CT FACIAL BONES WITHOUT CONTRAST CLINICAL INFORMATION: 40-year-old man with fall. COMPARISON: None. TECHNIQUE: Imaging was performed from the skull base to vertex without intravenous administration of contrast. In addition, helical noncontrast CT imaging was acquired through the facial bones and source images were reviewed along with axial reconstructions and sagittal and coronal MPRs. DLP: 742 mGy-cm FINDINGS: HEAD: No intracranial mass, hemorrhage, or midline shift is visualized. The ventricles and sulci are prominent for the patient's age, suggesting chronic volume loss. No extra-axial collections are identified. FACIAL BONES: There is no evidence of an acute facial bone fracture. Minimal mucosal thickening is seen along the floor of the right maxillary sinus. No significant dental disease is visualized. The orbits are unremarkable in appearance. A benign-appearing fibro-osseous lesion is seen in the right frontal bone lateral to the right frontal sinus and above the right orbit, measuring about 1.5 cm in diameter, perhaps reflecting focal fibro-osseous dysplasia or a hemangioma. IMPRESSION: No acute intracranial process or discrete facial bone fracture. Assessment/Plan Impression/Plan: 40-year-old male with past medical history of alcohol abuse and multiple previous hospital admissions for alcohol detox, alcohol withdrawal seizures, left upper extremity spontaneous DVT (was on Coumadin for 1 year), history of hypertension not taking any antihypertensive now (was prescribed HCTZ and amlodipine), history of back surgery for herniated disc was brought in by sister and Aunt for alcohol detox requiring ATivan drip. Assesment and Plan: Respiratory Currently stable Maintain on aspiration precautions. ID - No active issues. Cardiovascular - Stable. - Contin ue to monitor vitals. - CXR to f/u on hematoma on chest wall. - Hematology - Pancytopenia 2/2 alcoholism - Monitor H&H, Platelets. - Normal Vit B12, Folate - Metabolic Hypokalemia, hypomagnesemia, hypophosphatemia - 2/2 alcoholism - Replete and F/U labs accordingly - Transaminitis - F/U hepatitis panel. - F/U RUQ US - Monitor LFTs - Elevated lipase - 2/2 alcoholism versus traumatic - F/U repeat lipase level. - Elevated Ammonia - F/U ammonia level tomorrow - Neurological - Alcohol Withdrawl. - Continue on Ativan drip for now, and switch to Librium 50mg Q6 - Continue Banana bag. Switch to oral once clears swallow eval. - F/U CIWAs - F/U social work consult - DVT Prophylxai - On alps b/c of thrombocytopenia - Code status - Full code Diet - NPo FOR NWO. Consult Acknowledgment - Thank you for your consult request. FRANCIS JAMES MD 03/25/16 1048: Past History Family History Relations & Conditions If Any: Relation not specified for: *No pertinent family history Assessment/Plan Other Findings/Comments: Francis Lafleur M.D. have examined this patient, reviewed available EMR data, personally reviewed images, discussed with resident/PA/TIRE REPAIR MECHANIC, discussed management plan with housestaff and nursing staff, discussed managment plan all of healthcare providers, discussed management plan with patient and/or family, agreed with resident/PA/TIRE REPAIR MECHANIC. The past history and parts of the chart have been autopopulated. Impression 40 year old man * etoh withdrawal/dependence * chest wall hematoma, left eye bruise * s/p fall * hypokalemia, hypophosphatemia, hypomagnesemia * LFT derangement likely from etoh dependence Plan - Ativan gtt, taper to CIWA - Swallow evaluation, if does well, begin Librium 50mg po q6h with holding parameters - electrolyte repletion, k, mag, phos - trend LFTs - RUQ sono - hepatitis panel - repeat CXR to ensure no expansion of hematoma - ALPS for thrombocytopenia/hematoma TTS 45 min Consult Acknowledgment - Thank you for your consult request.
--- NOTE | 2016-03-25 15:13 | RADIOLOGY REPORT ---
EXAMINATION: XR PORTABLE CHEST CLINICAL INFORMATION: Trauma, fall. COMPARISON: 03/24/2016 TECHNIQUE: Portable view of the chest was obtained. FINDINGS: There is a new linear opacity at the right apex which has the appearance of subsegmental atelectasis. No pneumothorax or effusion. Grossly stable heart and mediastinum given differences in technique. Stable scoliosis. No fracture seen. IMPRESSION: No fracture or pneumothorax identified. New platelike atelectasis at the right apex.
--- NOTE | 2016-03-25 15:14 | ULTRASOUND REPORT ---
EXAMINATION: ABDOMINAL ULTRASOUND LIMITED CLINICAL INFORMATION: Transaminitis. Elevated LFTs. COMPARISON: None. TECHNIQUE: Real-time imaging of the right upper quadrant abdominal viscera. FINDINGS: PANCREAS: The visualized pancreatic head and body are normal in appearance. The remainder of the pancreas is obscured from visualization by the overlying bowel gas. LIVER: The liver is of normal size and diffuse increased echogenicity without focal lesions nor intrahepatic biliary ductal dilation. GALLBLADDER: Normal. The gallbladder is physiologically distended without evidence of stones, sludge, polyps, wall thickening or pericholecystic fluid. COMMON BILE DUCT: Normal in caliber measuring 0.4 cm in diameter. RIGHT KIDNEY: Normal. No hydronephrosis. No renal calculi or focal parenchymal lesions. The kidney measures 12.2 cm in maximum dimension. FREE FLUID: None. IMPRESSION: Liver of diffuse increased echogenicity without focal lesions. The appearance is nonspecific, but consistent with fatty infiltration. Neither cholelithiasis nor cholecystitis.
--- NOTE | 2016-03-25 21:05 | NUR ---
PT DROWSY, EASILY AROUSABLE TO VERBAL STIMULI. ORIENTED TO SELF AND PLACE, KNOWS DAY OF WEEK BUT DISORIENTED TO TO DATE AND YEAR. FOLLOWS COMMANDS, COOPERATIVE WITH CARE AT PRESENT. ON CIWA SCALE. BREATH SOUNDS CLEAR THOUGHOUT BILATERALLY. NO COUGH, SOB OR RESP DISTRESS NOTED AT PRESENT. SEE FLOW SHEET FOR VS, 02 SATS, I/O'S. MONITOR SHOWS NSR, NO ECTOPY NOTED AT PRESENT. BP STABLE AT PRESENT. ABD SOFT, NONTENDER, NONDISTENDED, POSITIVE BOWEL SOUNDS. [place] CATH IN PLACE-DRAINING ADEQUATE AMT OF CLEAR YELLOW URINE AT PRESENT. SKIN INTACT. MULTIPLE BRUISED AREAS NOTED-RT SHOULDER, ARMS AND TRUN
[2016-03-26] VITALS (7 sets, daily range): BP systolic 123–149; BP diastolic 70–97
[2016-03-26 06:11] LABS: ABSOLUTE BASOPHIL COUNT 0 /CUMM (0.0-0.2); ABSOLUTE EOSINOPHIL COUNT 0 /CUMM (0.0-0.7); ABSOLUTE GRANULOCYTE CT 1.7 /CUMM (1.4-6.5); ABSOLUTE LYMPH COUNT 1.3 /CUMM (1.2-3.4); ABSOLUTE MONOCYTE COUNT 0.4 /CUMM (0.10-0.60); BASOPHIL % 0.7 % (0.0-2.0); EOSINOPHIL % 0.9 % (0-5); GRANULOCYTE % 49.3 % (42.2-75.2); HEMATOCRIT 28.9 % (42-52); MEAN CORPUSCULAR HGB 34.1 PG (27.0-31.0); MEAN CORPUSCULAR HGB CONC 34.6 G/DL (33.0-37.0); MEAN CORPUSCULAR VOLUME 98.6 FL (80.0-94.0); MEAN PLATELET VOLUME 7.7 FL (7.4-10.4); PLATELET COUNT 99 /CUMM (130-400); RBC DISTRIBUTION WIDTH 16.7 % (11.5-14.5); RED BLOOD CELL CT 2.93 /CUMM (4.70-6.10); WHITE BLOOD CELL COUNT 3.5 /CUMM (4.8-10.8)
--- NOTE | 2016-03-26 06:59 | NUR ---
PT SLEPT ON AND OFF DURING THE NIGHT. PT ALERT, ORIENTED TO SELF AND PLACE, REMAINS DISORIENTED TO TIME. CIWA-3-4 FOR SHIFT. BREATH SOUNDS REMAIN CLEAR THOUGHOUT BILATERALLY. NO COUGH, SOB OR RESP DISTRESS NOTED THOUGHOUT SHIFT. MONITOR SHOWED NSR, NO ECTOPY NOTED THOUGHOUT SHIFT. HR-70-80'S. SBP-110-140'S FOR SHIFT. ADEQUATE URINE OUTPUT VIA [place] CATH. SKIN REMAINS INTACT
--- NOTE | 2016-03-26 09:25 | PN- CRCU ---
Subjective HPI/Critical Care Issues: Patient seen and examined. No chest pain, at respiratory baseline. No nausea, vomiting, diarrhea or constipation. Afebrile and hemodynamically stable. Objective Current Medications: Current Medications Sig/Elias Start time Last Medication Dose Route Stop Time Status Admin Chlordiazepoxide HCl 50 MG Q6 03/25 1408 AC 03/26 PO 0641 Cyanocobalamin/ 1 BAG DAILY@03/24 DC 03/24 Thiamine/Pyridoxine IV 2052 Dextrose/Water 1,000 ML Dextrose/Sodium 1,000 ML Q13H 03/24 1930 DC 03/24 Chloride IV 2039 Folic Acid 1 MG DAILY 03/26 1000 DC PO Folic Acid 1 MG DAILY 03/25 1615 AC 03/25 PO 1832 Lorazepam 0.5 MG ONCE 03/29 0000 DC PO 03/29 0001 Lorazepam 0.5 MG Q6H 03/28 0000 DC PO 03/28 1801 Lorazepam 0.5 MG ONCE ONE 03/27 1800 DC PO 03/27 1801 Lorazepam 1 MG Q6H 03/27 0000 DC PO 03/27 1201 Lorazepam 1.5 MG Q12H 03/26 0600 DC PO 03/26 1801 Lorazepam 1 MG Q12H 03/26 0000 DC PO 03/26 1201 Lorazepam 50 MG ONCE ONE 03/24 1930 AC 03/24 Sodium Chloride 500 ML IV 03/269 2053 Magnesium Sulfate 1 GM ONCE ONE 03/25 0845 DC 03/25 N/A 1 UNIT IV 03/25 1044 1300 Multivitamins 1 TAB DAILY 03/26 1000 DC PO Multivitamins 1 TAB DAILY 03/25 1615 AC 03/25 PO 1833 Potassium Chloride 40 MEQ ONCE ONE 03/25 2245 DC 03/25 PO 03/25 2246 2330 Potassium Chloride 40 MEQ ONCE ONE 03/25 1745 DC 03/25 PO 03/25 1746 1818 Potassium Chloride 60 MEQ ONCE ONE 03/25 1600 DC 03/25 PO 03/25 1601 1600 Potassium Phosphate 15 mMol ONE ONE 03/25 1100 DC 03/25 Sodium Chloride 250 ML IV 03/25 1503 1400 Thiamine HCl 100 MG DAILY 03/26 1000 DC PO Thiamine HCl 100 MG DAILY 03/25 1615 AC 03/25 PO 1833 Vital Signs & I&O Last 24 Hrs of Vitals and I&O: Vital Signs Date Time Temp Pulse Resp B/P Pulse O2 O2 Flow FiO2 Ox Delivery Rate 03/26 0600 79 16 149/97 03/26 0400 96.8 77 16 145/93 03/26 0400 98 Nasal 2.0L Cannula 03/26 0200 78 20 131/87 03/26 0000 97.1 84 21 123/85 03/26 0000 98 Nasal 2.0L Cannula 03/25 2300 97.1 84 21 114/64 98 Nasal 2.0L Cannula 03/25 2200 86 16 119/78 03/25 1999 98.8 99 18 127/77 03/25 2000 100 Nasal 2.0L Cannula 03/25 1600 98 Nasal 2.0L Cannula 03/25 1600 98.8 96 20 117/74 98 Nasal 2.0L Cannula 03/25 1200 96 Nasal 2.0L Cannula Intake & Output 03/26 1600 03/26 0800 03/26 0000 Intake Total 240 650 Output Total 800 975 Balance -560 -325 Intake, IV 250 Intake, Oral 240 400 Number 1 0 Bowel Movements Output, Urine 800 975 Exam Other Physical Findings: General - awake HEENT - ecchymosis around the eyes Cardiovascular - S1, S2 Lungs - clear to auscultation bilaterally Abdomen - soft, bowel sounds positive, no tenderness Extremities - without edema or cyanosis Results Last 24 Hrs of Lab Results: Laboratory Tests 03/26/16 0435: Anion Gap 13, Estimated GFR > 60, Glucose 99, Calcium 9.2, Phosphorus 2.9, Magnesium 2.0, Total Bilirubin 1.1, AST 142 H, ALT 95 H, Albumin 3.6, CBC w Diff NO MAN DIFF REQ, RBC 2.93 L, MCV 98.6 H, MCH 34.1 H, RDW 16.7 H, MPV 7.7, Gran % 49.3, Lymphocytes % 36.6, Monocytes % 12.5 H, Eosinophils % 0.9, Basophils % 0.7, Absolute Granulocytes 1.7, Absolute Lymphocytes 1.3, Absolute Monocytes 0.4, Absolute Eosinophils 0, Absolute Basophils 0, PUBS MCHC 34.6 03/25/16 2015: 03/25/16 1650: Anion Gap 13, Estimated GFR > 60, BUN/Creatinine Ratio 7.5, Ammonia 11 03/25/16 1650: Anion Gap 11, Estimated GFR > 60, Glucose 153 H, Calcium 9.0, Phosphorus 3.4, Magnesium 2.3, Total Bilirubin 1.0, AST 149 H, ALT 95 H, Albumin 3.7 03/25/16 1600: Urine Osmolality 311, Ur Random Creatinine 32.6, Ur Random Sodium 94 H, Ur Random Potassium 10.1, Fraction Sodium Excret 0.7 03/25/16 1557: Serum Osmolality Cancelled 03/25/16 1415: Anion Gap 10, Estimated GFR > 60, BUN/Creatinine Ratio 10.0, Glucose 885 *H, Serum Osmolality 292 03/25/16 1000: Sodium Cancelled, Potassium Cancelled, Chloride Cancelled, Carbon Dioxide Cancelled, Anion Gap Cancelled, BUN Cancelled, Creatinine Cancelled, BUN/ Creatinine Ratio Cancelled Impression/Plan Impression/Plan Impression/Plan: Impression 40 year old man * etoh withdrawal/dependence * chest wall hematoma, left eye bruise * s/p fall * hypokalemia, hypophosphatemia, hypomagnesemia * LFT derangement likely from etoh dependence * Fatty liver Plan - Ativan gtt stopped, taper to CIWA - Librium 50mg po q6h with holding parameters - electrolyte repletion, k, mag, phos - trend LFTs - Thiamine folate and multivitamins - ALPS for thrombocytopenia/hematoma TTS 35 min Transfer to
--- NOTE | 2016-03-26 17:34 | PN- Resident CRCU ---
Subjective HPI/CRCU Issues: Patient seen and examined. He is seen lying upright in bed resting comfortably. He appears to be in no acute distress. He states that he is having pain in the left side of his head and the right shoulder/arm and is requesting pain medicaiton. Otherwise he denies any fever, chills, chest pain, shortness of breath, nausea, vomiting, diarrhea. No overnight events reported. Objective Vital Signs & I&O Last 8 Hrs of Vitals and I&O: Vitals: - Temperature: 96.8-97.2 - Heart Rate: 77-79 - Respiratory Rate: 16-20 - Systolic Blood pressure: 131-149 - Diastolic Blood pressure: 70-97 - Oxygen Saturation: 98% on room air Exam General Appearance: well developed/nourished, no apparent distress, alert, awake , anxious Other Physical Findings: General -well-developed, well-nourished young male in no acute distress HEENT -ecchymosis around left orbit, no palpable crepitus, absent right central incisor Cardio/Chest - S1, S2 w/o murmurs/gallops/rubs, ecchymosis in left axillary area , tenderness to palpation Resp - CTA bilaterally w/o wheezing/rhochi/crackles GI - soft,Non-tender, non-distended, Bowel sounds present Neuro - Awake and alert, CN II - XII grossly intact, mildly agitation/anxious Ext - pulses 1+ bilaterally, no edema Current Medications: Current Medications Sig/Elias Start time Last Medication Dose Route Stop Time Status Admin Chlordiazepoxide HCl 50 MG Q6 03/25 1408 AC 03/26 PO 1244 Folic Acid 1 MG DAILY 03/25 1615 AC 03/26 PO 1023 Lorazepam 0.5 MG ONCE 03/29 0000 DC PO 03/29 0001 Lorazepam 0.5 MG Q6H 03/28 0000 DC PO 03/28 1801 Lorazepam 0.5 MG ONCE ONE 03/27 1800 DC PO 03/27 1801 Lorazepam 1 MG Q6H 03/27 0000 DC PO 03/27 1201 Lorazepam 1.5 MG Q12H 03/26 0600 DC PO 03/26 1801 Lorazepam 1 MG Q12H 03/26 0000 DC PO 03/26 1201 Lorazepam 50 MG ONCE ONE 03/24 1930 AC 01/06 Sodium Chloride 500 ML IV 03/26 Multivitamins 1 TAB DAILY 03/25 1615 AC 03/26 PO 1023 Potassium Chloride 40 MEQ ONCE ONE 03/26 1000 DC 03/26 PO 03/26 1001 1026 Potassium Chloride 40 MEQ ONCE ONE 03/25 2245 DC 03/25 PO 03/25 2246 2330 Potassium Chloride 40 MEQ ONCE ONE 03/25 1745 DC 03/25 PO 03/25 1746 1818 Thiamine HCl 100 MG DAILY 03/25 1615 AC 03/26 PO 1023 Impression/Plan Impression/Problem List Impression: Patient reports doing well today and is appropriate albeit slighly agitated that he cannot do simple tasks such as use the restroom independently. His pain complaints have associated signs of recent trauma. Ativan drip was discontinued and he is having consistently low CIWA scores. He is receiving a librium oral taper and tolerating it well. Social work consult is still pending. Problem List: - EtOH Withdrawal/Dependence, on ativan taper - Chest wall injury/Left eye bruise s/p fall - Electrolyte/Hepatic metabolic derangements - Pancytopenia Metabolic/Gastrointestinal: Multiple lab derangements including hypokalemia, hypophosphatemia, hypomagnesemia, and elevated liver function tests most likley secondary to alcoholism and bone marrow supression. Abdominal ultrasound was within normal limits. - Daily chemistries, LFTs - Replete electrolytes as needed - Librium 50mg PO Q6H - MV/Thiamine/Folate Diet - Regular Diet DVT PPx - ALPS Code Status - FULL CODE Problem List: 1. Alcohol withdrawal syndrome Pain Ratin Tomorrow's Labs & Rationales: CBC ICU Bundle LFT Plan DVT/Prophylaxis: mechanical
--- NOTE | 2016-03-26 18:59 | NUR ---
PT DROWSY, WAKES EASILY. OOB TO STAND WITH ASSIST OF ONE. HE IS STILL UNSTEADY ON FEET. BED ALARM ON. DIET TAKEN WELL. DENIES PAIN. CIWA IS 3-1 DAY PROGRESSED. WAITING FOR [facility]
--- NOTE | 2016-03-26 20:15 | NUR ---
PT A GEN MED HOLD. PT A/OX3, FOLLOWS COMMANDS, COOPERATIVE WITH CARE. ON CIWA SCALE. NO TREMORS NOTED. BREATH SOUNDS CLEAR BILATERALLY. NO COUGH, SOB OR RESP DISTRESS NOTED AT PRESENT. ABD SOFT, NONTENDER, NONDISTENDED, POSITIVE BOWEL SOUNDS. VOIDING CLEAR YELLOW URINE. DENIES ANY PAIN AT PRESENT. SKIN INTACT
[2016-03-27] VITALS: BP 130/80
[2016-03-27 06:30] LABS: ABSOLUTE BASOPHIL COUNT 0.1 /CUMM (0.0-0.2); ABSOLUTE EOSINOPHIL COUNT 0.1 /CUMM (0.0-0.7); ABSOLUTE GRANULOCYTE CT 1.6 /CUMM (1.4-6.5); ABSOLUTE LYMPH COUNT 1.3 /CUMM (1.2-3.4); ABSOLUTE MONOCYTE COUNT 0.5 /CUMM (0.10-0.60); BASOPHIL % 1.6 % (0.0-2.0); EOSINOPHIL % 1.6 % (0-5); GRANULOCYTE % 46.3 % (42.2-75.2); HEMATOCRIT 28.9 % (42-52); MEAN CORPUSCULAR HGB 33.8 PG (27.0-31.0); MEAN CORPUSCULAR VOLUME 99.6 FL (80.0-94.0); MEAN PLATELET VOLUME 7.2 FL (7.4-10.4); RBC DISTRIBUTION WIDTH 16.8 % (11.5-14.5); RED BLOOD CELL CT 2.91 /CUMM (4.70-6.10); WHITE BLOOD CELL COUNT 3.6 /CUMM (4.8-10.8)
[2016-03-27 06:36] LABS: PLATELET COUNT 159 /CUMM (130-400)
--- NOTE | 2016-03-27 07:37 | NUR ---
PT SLEPT ON AND OFF DURING THE NIGHT. DENIED ANY PAIN THOUGHOUT SHIFT. CIWA 0 THOUGHOUT SHIFT. PT COOPERATIVE WITH CARE. OOB TO BATHROOM-GAIT STEADY. VS STABLE. VOIDING. SKIN INTACT
[2016-03-27 08:00] VITALS: BP 138/70
--- NOTE | 2016-03-27 08:06 | PN- Housestaff ---
Subjective Follow-up For: Alcohol withdrawl Complaints: no complaints Tele-Events Since Last Visit: Not on tele monitor. However no significant events overnight. Subjective: I saw and examined the patient today. He is lying on the bed comfortable and calm. able to tolerate food well. No nausea/vomiting/hallucinations/palpitations /anxiety/sweating. CIWA score in the range of 1-3. Review of Systems Constitutional: Reports: no symptoms, see HPI. EENTM: Reports: no symptoms, see HPI. Cardiovascular: Reports: no symptoms. Respiratory: Reports: no symptoms. Gastrointestinal: Reports: no symptoms. Genitourinary: Reports: no symptoms. Musculoskeletal: Reports: no symptoms. Comments: ROS negative except as above. Objective Last 24 Hrs of Vital Signs/I&O Vital Signs Date Time Temp Pulse Resp B/P Pulse O2 O2 Flow FiO2 Ox Delivery Rate 03/27 1400 96.8 100 16 138/70 03/27 1200 96.8 98 20 138/70 03/27 1000 96.8 100 20 138/70 03/27 0800 96.8 100 16 138/70 03/27 0800 96.8 100 16 138/70 100 Room Air Room Air 03/27 0000 98.3 85 20 130/80 03/26 2300 98.3 85 20 130/80 97 Room Air Room Air 03/26 2200 95 Room Air Room Air 03/26 1600 97.4 94 20 124/70 98 Room Air Intake & Output 03/27 1600 03/27 0800 03/27 0000 Intake Total 600 1040 240 Output Total 600 300 Balance 600 440 -60 Intake, Oral 600 1040 240 Number 1 0 1 Bowel Movements Output, Urine 600 300 Physical Exam General Appearance: Alert, Oriented X3, Cooperative, No Acute Distress Skin: Bruise over the right chest region HEENT: Atraumatic, PERRLA Neck: Supple, No JVD Cardiovascular: Normal S1, Normal S2, No Murmurs Lungs: Clear to Auscultation, Normal Air Movement Abdomen: Normal Bowel Sounds, Soft, No Tenderness Neurological: Normal Gait, Intact Extremities: No Clubbing, No Cyanosis, No Edema Vascular: Pulses Symmetrical Current Medications: Current Medications Sig/Elias Start time Last Medication Dose Route Stop Time Status Admin Chlordiazepoxide HCl 50 MG Q6 03/25 1408 AC 03/27 PO 1158 Folic Acid 1 MG DAILY 03/25 1615 AC 03/27 PO 1045 Heparin Sodium 5,000 UNIT Q8 03/27 909 AC 03/27 (Porcine) SC 1404 Lorazepam 0.5 MG ONCE 03/29 0000 DC PO 03/29 0001 Lorazepam 0.5 MG Q6H 03/28 0000 DC PO 03/28 1801 Lorazepam 0.5 MG ONCE ONE 03/27 1800 DC PO 03/27 1801 Lorazepam 1 MG Q6H 03/27 0000 DC PO 03/27 1201 Lorazepam 50 MG ONCE ONE 03/24 1930 DC 03/24 Sodium Chloride 500 ML IV 03/26 Magnesium Oxide 400 MG ONE ONE 03/27 929 CAN PO 03/27 0831 Magnesium Oxide 400 MG ONE ONE 03/27 814 DC 03/27 PO 03/27 815 1045 Multivitamins 1 TAB DAILY 03/25 1615 AC 03/27 PO 1045 Phosphate 250 MG ONCE ONE 03/27 814 DC 03/27 PO 03/27 815 1045 Potassium Chloride 40 MEQ ONCE ONE 03/27 814 DC 03/27 PO 03/27 815 1045 Potassium Phosphate 15 mMol ONE ONE 03/27 929 CAN Sodium Chloride 250 ML IV 03/27 1333 Thiamine HCl 100 MG DAILY 03/25 161 AC 03/27 PO 1045 Last 24 Hrs of Lab/Noah Results Last 24 Hrs of Labs/Mics: Laboratory Tests 03/27/16 0611: Anion Gap 12, Estimated GFR > 60, Glucose 134 H, Calcium 9.3, Phosphorus 2.7, Magnesium 1.7, Total Bilirubin 0.6, Direct Bilirubin 0.3, AST 120 H, ALT 89 H, Alkaline Phosphatase 56, Total Protein 5.7 L, Albumin 3.2 L, CBC w Diff NO MAN DIFF REQ, RBC 2.91 L, MCV 99.6 H, MCH 33.8 H, RDW 16.8 H, MPV 7.2 L, Gran % 46.3, Lymphocytes % 35.3, Monocytes % 15.2 H, Eosinophils % 1.6, Basophils % 1.6, Absolute Granulocytes 1.6, Absolute Lymphocytes 1.3, Absolute Monocytes 0.5 , Absolute Eosinophils 0.1, Absolute Basophils 0.1, PUBS MCHC 34.0 Lines/Diet/Fluids Lines: peripheral lines Assessment/Plan Assessment: 40- YO M with PMH of alcohol abuse and multiple previous hospital admissions for alcohol detox, alcohol withdrawal seizures, left upper extremity spontaneous DVT (was on Coumadin for 1 year), history of hypertension not taking any antihypertensive now (was prescribed HCTZ and amlodipine), history of back surgery for herniated disc was brought in by sister and Aunt for alcohol detox requiring ATivan drip. Assesment and Plan: Alcohol Withdrawl * Currently stable. * On librium 50mg Q6 PO along folic acid, multivitamin and high dose thiamine currently. * CIWA yesteray is 1-3. * On aspiration precautions. * F/U social work consult regarding after care issues. Pancytopenia * 2/2 alcoholism * H&H today is 9.8/28 with platelet count of 1.5 (improved). * Normal Vit B12, Folate Multiple electrolyte derangements * Hypokalemia (k 3.6) , hypomagnesemia(mag 1.7), hypophosphatemia(phos 2.7) * 2/2 alcoholism * Repleted as needed. Transaminitis * trending down with AST/ALT of 120/89 * RUQ US shows fatty infiltration of liver (alcoholic picture) * Hepatitis panel negative. Elevated lipase * 2/2 alcoholism versus traumatic * repeat lipase level of 491. DVT Prophylaxis * On SC heparin Code status * Full code Diet * Regular diet Problem List: 1. Alcohol withdrawal syndrome 2. DVT prophylaxis 3. Alcohol abuse 4. Alcoholic hepatitis Pain Ratin Pain Location: n/a Pain Goal: Pain 4 or less Pain Plan: none Tomorrow's Labs & Rationales: ICU bundle CBC
--- NOTE | 2016-03-27 09:11 | PN- Pulmonary ---
Subjective HPI/Critical Care Issues: pt seen and examined off drip gm hold no events no n/v/d/c no dyspnea or cp Objective Current Medications: Current Medications Sig/Elias Start time Last Medication Dose Route Stop Time Status Admin Chlordiazepoxide HCl 50 MG Q6 03/25 1408 AC 03/27 PO 0613 Folic Acid 1 MG DAILY 03/25 1615 03/26 PO 1023 Lorazepam 0.5 MG ONCE 03/29 0000 DC PO 03/29 0001 Lorazepam 0.5 MG Q6H 03/28 0000 DC PO 03/28 1801 Lorazepam 0.5 MG ONCE ONE 03/27 1800 DC PO 03/27 1801 Lorazepam 1 MG Q6H 03/27 0000 DC PO 03/27 1201 Lorazepam 50 MG ONCE ONE 03/24 1930 DC 03/24 Sodium Chloride 500 ML IV 03/26 Magnesium Oxide 400 MG ONE ONE 03/27 0715 DC PO 03/27 0816 Multivitamins 1 TAB DAILY 03/25 1615 AC 03/26 PO 1023 Phosphate 250 MG ONCE ONE 03/27 0715 DC PO 03/27 0816 Potassium Chloride 40 MEQ ONCE ONE 03/27 0715 DC PO 03/27 0816 Potassium Chloride 40 MEQ ONCE ONE 03/26 1000 DC 03/26 PO 03/26 1001 1026 Thiamine HCl 100 MG DAILY 03/25 1615 03/26 PO 1023 Vital Signs & I&O Last 24 Hrs of Vitals and I&O: Vital Signs Date Time Temp Pulse Resp B/P Pulse O2 O2 Flow FiO2 Ox Delivery Rate 03/27 799 96.8 100 16 138/70 03/27 799 96.8 100 16 138/70 100 Room Air Room Air 03/27 0000 98.3 85 20 130/80 03/26 2300 98.3 85 20 130/80 97 Room Air Room Air 03/26 2200 95 Room Air Room Air 03/26 1600 97.4 94 20 124/70 98 Room Air 03/26 1047 98 Room Air Intake & Output 03/27 1600 03/27 0800 03/27 0000 Intake Total 1040 240 Output Total 600 300 Balance 440 -60 Intake, Oral 1040 240 Number 0 1 Bowel Movements Output, Urine 600 300 Exam Other Physical Findings: General - awake HEENT - ecchymosis around the eyes Cardiovascular - S1, S2 Lungs - clear to auscultation bilaterally Abdomen - soft, bowel sounds positive, no tenderness Extremities - without edema or cyanosis Results Last 24 Hrs of Lab Results: Laboratory Tests 03/27/16 0611: Anion Gap 12, Estimated GFR > 60, Glucose 134 H, Calcium 9.3, Phosphorus 2.7, Magnesium 1.7, Total Bilirubin 0.6, Direct Bilirubin 0.3, AST 120 H, ALT 89 H, Alkaline Phosphatase 56, Total Protein 5.7 L, Albumin 3.2 L, CBC w Diff NO MAN DIFF REQ, RBC 2.91 L, MCV 99.6 H, MCH 33.8 H, RDW 16.8 H, MPV 7.2 L, Gran % 46.3, Lymphocytes % 35.3, Monocytes % 15.2 H, Eosinophils % 1.6, Basophils % 1.6, Absolute Granulocytes 1.6, Absolute Lymphocytes 1.3, Absolute Monocytes 0.5 , Absolute Eosinophils 0.1, Absolute Basophils 0.1, PUBS MCHC 34.0 Impression/Plan Impression/Plan Impression/Plan: Impression 40 year old man * etoh withdrawal/dependence * chest wall hematoma, left eye bruise * s/p fall * hypokalemia, hypophosphatemia, hypomagnesemia * LFT derangement likely from etoh dependence * Fatty liver Plan - Ativan gtt stopped, taper to CIWA - Librium 50mg po q6h with holding parameters - electrolyte repletion, k, mag, phos - trend LFTs - Thiamine folate and multivitamins - thrombocytopenia resolved, start chemical DVT prophylaxis GM hold
[2016-03-27 10:00] VITALS: BP 138/70
[2016-03-27 12:00] VITALS: BP 138/70
--- NOTE | 2016-03-27 13:49 | Cons- Psychiatry ---
See Addendum Psychiatric Consult Date of Consult: 03/27/16 Reason for Consult: "Alcohol withdrawal" History of Present Illness: This is a 50-year-old male who presented to the ED with his sister and aunt on 03/24/2016 at 1156, requesting alcohol detox. He states that he had his last seizure possibly 2 days previous to presentation. The patient was noted to be having a conversation with himself in the ED. Per the H&P, the patient has been drinking for 20 years, and recently has had several falls, requiring presentation to emergency departments in [place]. The patient had presented to [facility] on 03/23/2016, but had left AMA this morning. The sister reports that his last drink was on 03/23/2016; they convinced him to come to [facility] ED for detox. They report that the patient currently lives with his father, and has been unemployed for 6 months. Allergies: Coded Allergies: kiwi (MOUTH BUBBLES UP PER PT 03/24/16) latex (RED, ITCHY 03/24/16) Current Medications: Per min reconciliation, no psychotropic medications currently prescribed. Past History Past Medical History Neurological: seizure EENT: NONE Cardiovascular: hypertension, History of blood clot, indicates left clavicle; was on warfarin, now on ASA 81 mg daily. 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 Psychiatric Treatment History Psych Treatment Psychiatric Treatment No Substance Use/Abuse History Drug Use/Abuse Substances Used/Abused Yes Substance Used/Abused Alcohol Substance Abuse Treatment Substance Abuse Treatment Past Substance Abuse [place] No Comments: The patient has previously been unwilling to engage in treatment. Assessment/Plan Mental Status Mental Status Exam: Patient seen. Alert and oriented to person, date, reason, but not day, nor place. "I came here because I did not want to go to [place]." Denies SI/HI. Denies AVH, no alex delusions. Mother 3 years ago of sarcoma; lives with father, and reports that they get along. Had 6 months sobriety. Denies psychiatric diagnosis or treatment history. Is not aware of any family psychiatric history. Depression 3/10, anxiety 0/10; 10/10 is the most severe. He feels that his depression will resolve upon discharge History of clot in LUE; was on warfarin, now on ASA 81 mg daily. 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 He denies use of recreational or street drugs. He states that his last seizure was at a wedding in December 2014. After that, he reports he had a period of 6 months of sobriety. He states that this is his first alcohol detox in an ICU. He has not engaged in alcoholics anonymous meetings as a patient. 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 He states that while taking patients to AA meetings, he felt that they would not be suitable for him, but he has never experienced them for himself. Lab Results: Laboratory Tests 03/27 0611 Chemistry Sodium (137 - 145 mmol/L) 136 L Potassium (3.5 - 5.1 mmol/L) 3.6 Chloride (98 - 107 mmol/L) 97 L Carbon Dioxide (22 - 30 mmol/L) 26 Anion Gap (5 - 16) 12 BUN (9 - 20 mg/dL) 4 L Creatinine (0.7 - 1.2 mg/dL) 0.5 L Estimated GFR (>60 ml/min) > 60 Glucose (65 - 99 mg/dL) 134 H Calcium (8.4 - 10.2 mg/dL) 9.3 Phosphorus (2.5 - 4.5 mg/dL) 2.7 Magnesium (1.6 - 2.3 mg/dL) 1.7 Total Bilirubin (0.2 - 1.3 mg/dL) 0.6 Direct Bilirubin (< 0.4 mg/dL) 0.3 AST (17 - 59 U/L) 120 H ALT (21 - 72 U/L) 89 H Alkaline Phosphatase (< 127 U/L) 56 Total Protein (6.3 - 8.2 g/dL) 5.7 L Albumin (3.5 - 5.0 g/dL) 3.2 L Hematology CBC w Diff NO MAN DIFF REQ WBC (4.8 - 10.8 /CUMM) 3.6 L RBC (4.70 - 6.10 /CUMM) 2.91 L Hgb (14.0 - 18.0 G/DL) 9.8 L Hct (42 - 52 %) 28.9 L MCV (80.0 - 94.0 FL) 99.6 H MCH (27.0 - 31.0 PG) 33.8 H RDW (11.5 - 14.5 %) 16.8 H Plt Count (130 - 400 /CUMM) 159 MPV (7.4 - 10.4 FL) 7.2 L Gran % (42.2 - 75.2 %) 46.3 Lymphocytes % (20.5 - 51.1 %) 35.3 Monocytes % (1.7 - 9.3 %) 15.2 H Eosinophils % (0 - 5 %) 1.6 Basophils % (0.0 - 2.0 %) 1.6 Absolute Granulocytes (1.4 - 6.5 /CUMM) 1.6 Absolute Lymphocytes (1.2 - 3.4 /CUMM) 1.3 Absolute Monocytes (0.10 - 0.60 /CUMM) 0.5 Absolute Eosinophils (0.0 - 0.7 /CUMM) 0.1 Absolute Basophils (0.0 - 0.2 /CUMM) 0.1 PUBS MCHC (33.0 - 37.0 G/DL) 34.0 Diffential Diagnosis: Alcohol use disorder, severe, recurrent Impression: The patient indicates willingness to stop drinking, and is interested in the IOP program. He has finished an IOP program at [place] in 2009. CIWA scores for the previous 24 hours: 0-4-0-1-4-4-0-1-1-2-3 Vital signs at 1000:138/70, 100 HR, 96.8, 20 RR, 100% on room air at 0800 The patient currently has no Ativan ordered on an as-needed basis. He is receiving Librium 50 mg by mouth every 6 hours. Provisional Treatment Plan: 1. ETOH Detox protocol, including daily thiamine, folate, MVI. a. The patient is receiving Librium 50 mg by mouth every 6 hours. b. Please consider reducing this by approximately 20% daily, tapering to off before discharge: Librium 50 mg PO every 8 hours for 3 doses, then Librium 50 mg PO every 12 hours for 3 doses, then stop. c. Please add Librium 25 mg PO every 4 hours, as needed, per CIWA. 2. SW consult to assist with aftercare planning. Thank-you for asking us to participate in Roman's care. Psychiatry signing off. Please reconsult if other psychiatry matters arise. Complete note to follow. Adilia Stover APRN, Pager [phone]
[2016-03-27 14:00] VITALS: BP 138/70
--- NOTE | 2016-03-27 15:06 | NUR ---
REferral received this am via electronic border machine operator. This patient is a 40 year old man, admitted to the hospital on 03/24/16 for ETOH Withdrawal. This patient is known to me remotely from a brief inrteraction in November of this year when he was admitted for detox then. At that time, he was agreeable to an intake at our IOP. An intake was scheduled, but he never attended. He was placed on the CIWA for observation of withdrawal symptoms. He has been with out documented symptoms now for more than 24 hours. He is on a scheduled librium does of 50mg Q6 hours. I met with Roman briefly today. He reports that he would be interested in our IOP (which had been documented by Adilia Stover APRN). I told him that I would return to see him tomorrow and schedule an intake at that time. RN has informed me that patients sister has reported that patient may not be able to return to his home with his dad. Will follow to better assess for appropriate aftercare planning.
[2016-03-28] VITALS: BP 120/80
--- NOTE | 2016-03-28 06:51 | NUR ---
PT WAS ON THE CONTINUOUS POX MONITORING SINCE MIDNIGHT BUT PT WAS AWAKE MOST OF THE NIGHT. POX RANGING 92-99%. INC OF URINE LG AMT X2 & VOIDED SOME IN THE BSC. COMPLETE WASH GIVEN. REMAINS BACK ON THE GERICHAIR & BLE ELEVATED UP. NO C/O PAIN VOICED. CONT TO MONITOR.
[2016-03-28 08:00] VITALS: BP 118/68
[2016-03-28 08:22] LABS: ABSOLUTE BASOPHIL COUNT 0 /CUMM (0.0-0.2); ABSOLUTE EOSINOPHIL COUNT 0.1 /CUMM (0.0-0.7); ABSOLUTE GRANULOCYTE CT 1.6 /CUMM (1.4-6.5); ABSOLUTE LYMPH COUNT 1.8 /CUMM (1.2-3.4); ABSOLUTE MONOCYTE COUNT 0.8 /CUMM (0.10-0.60); GRANULOCYTE % 37.6 % (42.2-75.2); HEMATOCRIT 30.4 % (42-52); MEAN PLATELET VOLUME 7.7 FL (7.4-10.4)
[2016-03-28 08:37] LABS: BASOPHIL % 0.9 % (0.0-2.0); EOSINOPHIL % 1.4 % (0-5); MEAN CORPUSCULAR HGB CONC 33.9 G/DL (33.0-37.0); MEAN CORPUSCULAR VOLUME 100.3 FL (80.0-94.0); RBC DISTRIBUTION WIDTH 17.6 % (11.5-14.5); RED BLOOD CELL CT 3.03 /CUMM (4.70-6.10); WHITE BLOOD CELL COUNT 4.2 /CUMM (4.8-10.8)
[2016-03-28 08:42] LABS: PLATELET COUNT 262 /CUMM (130-400)
--- NOTE | 2016-03-28 09:52 | PN- Pulmonary ---
Subjective HPI/Critical Care Issues: pt seen and examined doing well comfortable off ativan drip librium taper no n/v/d/c no cp no sob Objective Current Medications: Current Medications Sig/Elias Start time Last Medication Dose Route Stop Time Status Admin Acetaminophen 650 MG ONCE ONE 03/28 0515 DC 03/28 PO 03/28 06 06 Acetaminophen 975 MG .STK-MED ONE 03/27 1302 DC PO 03/27 1303 Chlordiazepoxide HCl 25 MG Q4P PRN 03/28 0745 AC PO Chlordiazepoxide HCl 50 MG Q6 03/25 1408 AC 03/28 PO 0605 Folic Acid 1 MG DAILY 03/25 1615 AC 03/27 PO 1045 Heparin Sodium 5,000 UNIT Q8 03/27 0910 AC 03/28 (Porcine) SC 0604 Lorazepam 0.5 MG ONCE 03/29 0000 DC PO 03/29 0001 Lorazepam 0.5 MG Q6H 03/28 0000 DC PO 03/28 1801 Lorazepam 0.5 MG ONCE ONE 03/27 1800 DC PO 03/27 1801 Magnesium Oxide 400 MG ONE ONE 03/27 0930 CAN PO 03/27 0931 Multivitamins 1 TAB DAILY 03/25 1615 AC 03/27 PO 1045 Oxycodone HCl 10 MG .STK-MED ONE 03/27 1301 DC PO 03/27 1302 Potassium Phosphate 15 mMol ONE ONE 03/27 0830 CAN Sodium Chloride 250 ML IV 03/27 1333 Thiamine HCl 100 MG DAILY 03/25 1615 AC 03/27 PO 1045 Vital Signs & I&O Last 24 Hrs of Vitals and I&O: Vital Signs Date Time Temp Pulse Resp B/P Pulse O2 O2 Flow FiO2 Ox Delivery Rate 03/28 0600 77 03/28 0400 79 03/28 0000 98.0 81 16 120/80 03/28 0000 98.0 81 16 120/80 97 Room Air 03/27 2200 79 03/27 2000 80 03/27 1400 96.8 100 16 138/70 03/27 1200 96.8 98 20 138/70 03/27 1000 96.8 100 20 138/70 Intake & Output 03/28 1600 03/28 0800 03/28 0000 Intake Total 240 120 Output Total Balance 240 120 Intake, IV 0 Intake, Oral 240 120 Number 0 0 Bowel Movements Patient 180 lb Weight Exam Other Physical Findings: General - awake HEENT - ecchymosis around the eyes Cardiovascular - S1, S2 Lungs - clear to auscultation bilaterally Abdomen - soft, bowel sounds positive, no tenderness Extremities - without edema or cyanosis Results Last 24 Hrs of Lab Results: Laboratory Tests 03/28/16 0615: Anion Gap 12, Estimated GFR > 60, Glucose 93, Calcium 10.0, Phosphorus 4.0, Magnesium 1.7, Total Bilirubin 0.7, AST 107 H, ALT 101 H, Albumin 3.8, CBC w Diff NO MAN DIFF REQ, RBC 3.03 L, MCV 100.3 H, MCH 34.0 H, RDW 17.6 H, MPV 7.7, Gran % 37.6 L, Lymphocytes % 41.8, Monocytes % 18.3 H, Eosinophils % 1.4, Basophils % 0.9, Absolute Granulocytes 1.6, Absolute Lymphocytes 1.8, Absolute Monocytes 0.8 H, Absolute Eosinophils 0.1, Absolute Basophils 0, PUBS MCHC 33.9 Impression/Plan Impression/Plan Impression/Plan: Impression 40 year old man * etoh withdrawal/dependence * chest wall hematoma, left eye bruise * s/p fall * hypokalemia, hypophosphatemia, hypomagnesemia * LFT derangement likely from etoh dependence * Fatty liver Plan - Ativan gtt stopped, taper to CIWA - Librium as per psych with holding parameters - electrolyte repletion, k, mag, phos - trend LFTs - Thiamine folate and multivitamins - thrombocytopenia resolved, start chemical DVT prophylaxis GM hold
--- NOTE | 2016-03-28 10:13 | PN- Housestaff ---
Subjective Follow-up For: Alcohol withdrawl Complaints: no complaints Tele-Events Since Last Visit: Not on tele monitor. However no significant events overnight. Subjective: I saw and examined the patient today morning. He is lying on the bed comfortably. Agrees to join in a rehabilitation program. He denies any fever, palpitations, sweating, insomnia overnight. Review of Systems Constitutional: Reports: no symptoms, see HPI. Comments: ROS negative except the above. Objective Last 24 Hrs of Vital Signs/I&O Vital Signs Date Time Temp Pulse Resp B/P Pulse O2 O2 Flow FiO2 Ox Delivery Rate 03/28 1600 97.8 80 20 110/68 99 Room Air 03/28 0800 98.1 74 20 118/68 98 Room Air 03/28 0600 77 03/28 0400 79 03/28 0000 98.0 81 16 120/80 03/28 0000 98.0 81 16 120/80 97 Room Air 03/27 2200 79 Intake & Output 03/28 1600 03/28 0800 03/28 0000 Intake Total 800 240 120 Output Total 300 Balance 500 240 120 Intake, IV 0 Intake, Oral 800 240 120 Number 0 0 Bowel Movements Output, Urine 300 Patient 81.647 kg Weight Physical Exam General Appearance: Alert, Oriented X3, Cooperative, No Acute Distress Skin: Significant bruise over the left chest wall. HEENT: Atraumatic, PERRLA, EOMI Neck: Supple, No JVD Cardiovascular: Regular Rate, Normal S1, Normal S2, No Murmurs Lungs: Clear to Auscultation, Normal Air Movement Abdomen: Normal Bowel Sounds, Soft, No Tenderness Neurological: Intact Extremities: No Clubbing, No Cyanosis, No Edema Vascular: Pulses Symmetrical Current Medications: Current Medications Sig/Elias Start time Last Medication Dose Route Stop Time Status Admin Acetaminophen 650 MG ONCE ONE 03/28 0615 DC 03/28 PO 03/28 0616 0605 Chlordiazepoxide HCl 50 MG Q8 03/28 2200 AC PO Chlordiazepoxide HCl 25 MG Q4P PRN 03/28 0745 AC PO Chlordiazepoxide HCl 50 MG Q6 03/25 1408 DC 03/28 PO 1152 Folic Acid 1 MG DAILY 03/25 1615 AC 03/28 PO 1152 Heparin Sodium 5,000 UNIT Q8 03/27 0910 AC 03/28 (Porcine) SC 1350 Lorazepam 0.5 MG ONCE 03/29 0000 DC PO 03/29 0001 Lorazepam 0.5 MG Q6H 03/28 0000 DC PO 03/28 1801 Magnesium Oxide 400 MG ONE ONE 03/28 1045 DC 03/28 PO 03/28 1046 1152 Multivitamins 1 TAB DAILY 03/25 1615 AC 03/28 PO 1152 Thiamine HCl 100 MG DAILY 03/25 1615 AC 03/28 PO 1152 Last 24 Hrs of Lab/Noah Results Last 24 Hrs of Labs/Mics: Laboratory Tests 03/28/16 0615: Anion Gap 12, Estimated GFR > 60, Glucose 93, Calcium 10.0, Phosphorus 4.0, Magnesium 1.7, Total Bilirubin 0.7, AST 107 H, ALT 101 H, Albumin 3.8, CBC w Diff NO MAN DIFF REQ, RBC 3.03 L, MCV 100.3 H, MCH 34.0 H, RDW 17.6 H, MPV 7.7, Gran % 37.6 L, Lymphocytes % 41.8, Monocytes % 18.3 H, Eosinophils % 1.4, Basophils % 0.9, Absolute Granulocytes 1.6, Absolute Lymphocytes 1.8, Absolute Monocytes 0.8 H, Absolute Eosinophils 0.1, Absolute Basophils 0, PUBS MCHC 33.9 Assessment/Plan Assessment: 40- YO M with PMH of alcohol abuse and multiple previous hospital admissions for alcohol detox, alcohol withdrawal seizures, left upper extremity spontaneous DVT (was on Coumadin for 1 year), history of hypertension not taking any antihypertensive now (was prescribed HCTZ and amlodipine), history of back surgery for herniated disc was brought in by sister and Aunt for alcohol detox requiring ATivan drip. Assesment and Plan: Alcohol Withdrawl * Currently stable. * On librium 50mg Q8 PO along folic acid, multivitamin and high dose thiamine currently. * Librium 25mg Q4 PRN. * On aspiration precautions. * F/U social work consult regarding after care issues. Pancytopenia * 2/2 alcoholism * H&H today is 01/15 with platelet count of 262, white count of 4.2. * Normal Vit B12, Folate Multiple electrolyte derangements * Hypomagnesemia(mag 1.7) * 2/2 alcoholism * Repleted. Transaminitis * trending down with AST/ALT of 107/101 * RUQ US shows fatty infiltration of liver (alcoholic picture) * Hepatitis panel negative. Elevated lipase * 2/2 alcoholism versus traumatic * repeat lipase level of 491. DVT Prophylaxis * On SC heparin Code status * Full code Diet * Regular diet Problem List: 1. Alcohol withdrawal syndrome 2. Alcoholic hepatitis 3. Alcoholism Pain Ratin Pain Location: n/a Pain Goal: Pain 4 or less Pain Plan: Tylenol PRN Tomorrow's Labs & Rationales: ICU bundle cbc
--- NOTE | 2016-03-28 14:36 | PN- Psychiatry ---
Assessment/Plan Impression: Identifying Info: Christal Rogers is a 40-year-old single male who presented to [facility] emergency department on 03/24/2016 requesting alcohol detox. SUBJECTIVE "I'm doing alright," patient denies any subjective symptoms of alcohol withdrawal at this time. States he is still open to IOP program. OBJECTIVE Mental Status Exam Presentation/Appearance: Cooperative with evaluation. Hospital garb. Sleeping in bed. Orientation: Oriented 3 Sensorium: Lethargic but alert when aroused Eye contact: Appropriate Affect: Somewhat blunted Mood: Dysphoric related to hospitalization Depression: Endorses mild depression Anxiety: Denies Thought Content: - Denies SI/HI, AH/VH, PI. States and also believes they will not kill themselves. - Last hallucinations were a few days ago according to patient - Denies Hopeless/Helpless Thoughts - No alex delusions endorsed or assessed Thought Process: Linear Speech: Somewhat soft but normal tone and rate Language: [place] fluent Judgment: Intact Insight: Intact Cognition: Memory: Some recent short-term deficits related to withdrawal process Attention/Concentration: Grossly intact MMSE: Did not assess Brief ROS Gait: Per report steady Sleep: Patient has been sleeping during the day and up at night, per family report this is typical behavior Appetite: Grossly intact CIWA scores all 0 over the past 24 hours. ASSESSMENT 40-year-old single male with alcohol use disorder currently toward the end of detox. At present he is on Librium 50 mg every 6 hours. Differential diagnosis Alcohol use disorder, severe, in early recovery Alcohol withdrawal, with perceptual disturbances, resolving Suggestion: 1. Please decrease frequency of Librium to 50 mg q8h. 2. Please continue CIWA protocol and monitor for signs and symptoms of continued withdrawal. 3. Please continue vitamin supplementation. 4. We will work with social work to obtain IOP appointment. If possible would like to discharge patient directly to IOP. Thank you for including psychiatry in this case we will continue to follow. Santos Holguin APRN, pager [phone] Subjective Subjective: .
[2016-03-28 16:00] VITALS: BP 110/68
[2016-03-29] VITALS: BP 118/62
[2016-03-29 04:00] VITALS: BP 118/62
[2016-03-29 06:30] LABS: ABSOLUTE BASOPHIL COUNT 0.1 /CUMM (0.0-0.2); ABSOLUTE EOSINOPHIL COUNT 0.1 /CUMM (0.0-0.7); ABSOLUTE GRANULOCYTE CT 2.1 /CUMM (1.4-6.5); ABSOLUTE LYMPH COUNT 1.5 /CUMM (1.2-3.4); ABSOLUTE MONOCYTE COUNT 0.8 /CUMM (0.10-0.60); BASOPHIL % 1.1 % (0.0-2.0); EOSINOPHIL % 1.6 % (0-5); GRANULOCYTE % 46.2 % (42.2-75.2); HEMATOCRIT 33.1 % (42-52); MEAN CORPUSCULAR HGB 33.7 PG (27.0-31.0); MEAN CORPUSCULAR HGB CONC 33.5 G/DL (33.0-37.0); MEAN CORPUSCULAR VOLUME 100.5 FL (80.0-94.0); MEAN PLATELET VOLUME 7.2 FL (7.4-10.4); PLATELET COUNT 358 /CUMM (130-400); RBC DISTRIBUTION WIDTH 17.2 % (11.5-14.5); RED BLOOD CELL CT 3.29 /CUMM (4.70-6.10); WHITE BLOOD CELL COUNT 4.6 /CUMM (4.8-10.8)
--- NOTE | 2016-03-29 07:24 | PN- Housestaff ---
Subjective Follow-up For: 1. Alcohol withdrawl Complaints: no complaints Tele-Events Since Last Visit: No significant events overnight. Subjective: I saw and examined the patient today morning. He is lying comfortably on the bed, alert and oriented. no more signs of withdrawl. He reports pain in his chest in the region of injury. Also reports pain in his back. He is able to walk around to the rest room without any difficulty. Encouraged to walk more. Review of Systems Constitutional: Reports: see HPI, malaise, weakness. EENTM: Reports: no symptoms. Cardiovascular: Reports: no symptoms. Respiratory: Reports: no symptoms. Gastrointestinal: Reports: no symptoms. Genitourinary: Reports: no symptoms. Musculoskeletal: Reports: see HPI. Skin: Reports: change in skin color, erythema. Neurological/Psychological: Reports: see HPI. Comments: ROS negative except the above. Objective Last 24 Hrs of Vital Signs/I&O Vital Signs Date Time Temp Pulse Resp B/P Pulse O2 O2 Flow FiO2 Ox Delivery Rate 03/29 0600 78 22 03/29 0400 80 22 118/62 03/29 0200 82 22 03/29 0000 97.6 82 18 118/62 03/29 0000 97 Room Air 03/29 0000 97.6 82 18 118/62 97 Room Air 03/28 1600 97.8 80 20 110/68 99 Room Air Intake & Output 03/29 1600 03/29 0800 03/29 0000 Intake Total 100 60 Output Total 400 Balance -300 60 Intake, Oral 100 60 Output, Urine 400 Physical Exam General Appearance: Alert, Oriented X3, Cooperative, No Acute Distress Skin: Significant bruise in the lft axillary region, appears resolving HEENT: PERRLA, EOMI, bruising around the left eye region Neck: Supple, No JVD Cardiovascular: Normal S1, Normal S2, No Murmurs Lungs: Clear to Auscultation, Normal Air Movement Abdomen: Normal Bowel Sounds, Soft, No Tenderness Neurological: Normal Gait, Normal Speech Extremities: No Clubbing, No Cyanosis, No Edema Vascular: Pulses Symmetrical Current Medications: Current Medications Sig/Elias Start time Last Medication Dose Route Stop Time Status Admin Chlordiazepoxide HCl 50 MG Q12 03/29 2199 AC PO Chlordiazepoxide HCl 50 MG Q8 03/28 2199 DC 03/29 PO 0549 Chlordiazepoxide HCl 25 MG Q4P PRN 03/28 0745 AC PO Chlordiazepoxide HCl 50 MG Q6 03/25 1408 DC 03/28 PO 1152 Folic Acid 1 MG DAILY 03/25 1615 AC 03/29 PO 1207 Heparin Sodium 5,000 UNIT Q8 03/27 0910 AC 03/29 (Porcine) SC 0549 Lorazepam 0.5 MG ONCE 03/29 0000 DC PO 03/29 0001 Multivitamins 1 TAB DAILY 03/25 1615 AC 03/29 PO 1207 Thiamine HCl 100 MG DAILY 03/25 1615 AC 03/29 PO 1207 Last 24 Hrs of Lab/Noah Results Last 24 Hrs of Labs/Mics: Laboratory Tests 03/29/16 0530: Anion Gap 14, Estimated GFR > 60, Glucose 102 H, Calcium 10.0, Phosphorus 4.7 H, Magnesium 1.8, Total Bilirubin 0.6, AST 85 H, ALT 108 H, Albumin 3.8, CBC w Diff NO MAN DIFF REQ, RBC 3.29 L, MCV 100.5 H, MCH 33.7 H, RDW 17.2 H, MPV 7.2 L, Gran % 46.2, Lymphocytes % 33.7, Monocytes % 17.4 H, Eosinophils % 1.6, Basophils % 1.1, Absolute Granulocytes 2.1, Absolute Lymphocytes 1.5, Absolute Monocytes 0.8 H, Absolute Eosinophils 0.1, Absolute Basophils 0.1, PUBS MCHC 33.5 Orders CIWA Score (last 24 hrs): 0 Assessment/Plan Assessment: 40- YO M with PMH of alcohol abuse and multiple previous hospital admissions for alcohol detox, alcohol withdrawal seizures, left upper extremity spontaneous DVT (was on Coumadin for 1 year), history of hypertension not taking any antihypertensive now (was prescribed HCTZ and amlodipine), history of back surgery for herniated disc was brought in by sister and Aunt for alcohol detox requiring Ativan drip. Assesment and Plan: Alcohol Withdrawl * Currently stable. * On librium 50mg Q12 PO along folic acid, multivitamin and high dose thiamine. * Librium 25mg Q4 PRN - not taking so far. * On aspiration precautions. * social work consult regarding after care issues. Pancytopenia * 2/2 alcoholism * H&H today is 11.33 with platelet count of 358, white count of 4.6. * Normal Vit B12, Folate Persistent hypomagnesemia * Mag of 1.8 today * 2/2 alcoholism * Repleted. Transaminitis * trending down with AST/ALT of 85/108 * RUQ US shows fatty infiltration of liver (alcoholic picture) * Hepatitis panel negative. Elevated lipase * 2/2 alcoholism versus traumatic * repeat lipase level of 491. DVT Prophylaxis * On SC heparin Code status * Full code Diet * Regular diet Problem List: 1. Alcohol withdrawal syndrome 2. Alcoholism 3. DVT prophylaxis 4. Alcoholic hepatitis Pain Ratin Pain Location: left axillary region Pain Goal: Pain 4 or less Pain Plan: Tylenol PRN Tomorrow's Labs & Rationales: ICU bundle cbc
[2016-03-29 08:00] VITALS: BP 122/84
--- NOTE | 2016-03-29 10:59 | PN- Psychiatry ---
Assessment/Plan Impression: The patient is making good progress on his ETOH detox: CIWA 1000: 9-9-4-1-8-5-0-0-0-0-0-0 VS 1000: 122/84, 81, 97.1, 22, pain 2/10 Librium 50 mg PO q 8 hours, and has had 3 doses. The patient is looking forward to beginning an IOP program, but is still resistant to AA meetings. He expects to discharge to home with his father. Librium taper can be advanced, with a goal to discharge tomorrow. Please consider trazodone for insomnia. CEDRICK is following and is assisting with aftercare planning. Suggestion: 1. Continue taper of librium to off before discharge, anticipated to be 2016 by medical staff. a. Reduce librium to 50 mg PO every 12 hours for two doses, then librium 25 mg PO every 12 hours, then stop. 2. Trazodone 50 mg PO at bedtime as needed for insomnia. If tolerated, and if still insomnia after one hour, repeat one time. B/R/SE reviewed with patient. 3. SW is assisting with aftercare planning. We do not anticipate further visits. Please reconsult if otherpsychiatric matters arise. Thank-you for asking us to participate in Roman's care. Adilia Stover APRN, Pager [phone] Subjective Subjective: Patient seen today, 03/29/2016, at 1015 in ICU room 108. He is lying in bed, and c/o pain at right shoulder, which is ecchymotic from a fall [employer]. Oriented to person, off by 3 days, knows that he is in "A hospital I dont usually come to." Denies AVTH; presents no alex delusions. Denies SI/HI Reports he has been in touch with his father, and denies any problem at home; "My father wants me to get well." The patient denies that his father is a drinking tena; father is supportive. He has not been sleeping well at home or in the hospital. He has tried melatonin , which has not helped very much.
--- NOTE | 2016-03-29 12:45 | PN- Pulmonary ---
Subjective HPI/Critical Care Issues: Patient seen and examined. No chest pain, at respiratory baseline. No nausea, vomiting, diarrhea or constipation. Afebrile and hemodynamically stable. Objective Current Medications: Current Medications Sig/Elias Start time Last Medication Dose Route Stop Time Status Admin Chlordiazepoxide HCl 50 MG Q12 03/29 2199 AC PO Chlordiazepoxide HCl 50 MG Q8 03/28 2200 DC 03/29 PO 0549 Chlordiazepoxide HCl 25 MG Q4P PRN 03/28 0745 AC PO Chlordiazepoxide HCl 50 MG Q6 03/25 1408 DC 03/28 PO 1152 Folic Acid 1 MG DAILY 03/25 1615 AC 03/29 PO 1207 Heparin Sodium 5,000 UNIT Q8 03/27 0910 AC 03/29 (Porcine) SC 0549 Lorazepam 0.5 MG ONCE 03/29 0000 DC PO 03/29 0001 Multivitamins 1 TAB DAILY 03/25 1615 AC 03/29 PO 1207 Thiamine HCl 100 MG DAILY 03/25 1615 AC 03/29 PO 1207 Vital Signs & I&O Last 24 Hrs of Vitals and I&O: Vital Signs Date Time Temp Pulse Resp B/P Pulse O2 O2 Flow FiO2 Ox Delivery Rate 03/29 08 97.1 81 22 122/84 03/29 0800 97.1 81 22 122/84 95 Room Air 03/29 0600 78 22 03/29 0400 80 22 118/62 03/29 0200 82 22 03/29 0000 97.6 82 18 118/62 03/29 0000 97 Room Air 03/29 0000 97.6 82 18 118/62 97 Room Air 03/28 1600 97.8 80 20 110/68 99 Room Air Intake & Output 03/29 1600 03/29 0800 03/29 0000 Intake Total 100 60 Output Total 400 Balance -300 60 Intake, Oral 100 60 Output, Urine 400 Exam Other Physical Findings: General - awake HEENT - ecchymosis around the eyes Cardiovascular - S1, S2 Lungs - clear to auscultation bilaterally Abdomen - soft, bowel sounds positive, no tenderness Extremities - without edema or cyanosis Results Last 24 Hrs of Lab Results: Laboratory Tests 03/29/16 0530: Anion Gap 14, Estimated GFR > 60, Glucose 102 H, Calcium 10.0, Phosphorus 4.7 H, Magnesium 1.8, Total Bilirubin 0.6, AST 85 H, ALT 108 H, Albumin 3.8, CBC w Diff NO MAN DIFF REQ, RBC 3.29 L, MCV 100.5 H, MCH 33.7 H, RDW 17.2 H, MPV 7.2 L, Gran % 46.2, Lymphocytes % 33.7, Monocytes % 17.4 H, Eosinophils % 1.6, Basophils % 1.1, Absolute Granulocytes 2.1, Absolute Lymphocytes 1.5, Absolute Monocytes 0.8 H, Absolute Eosinophils 0.1, Absolute Basophils 0.1, PUBS MCHC 33.5 Impression/Plan Impression/Plan Impression/Plan: Impression 40 year old man * etoh withdrawal/dependence * chest wall hematoma, left eye bruise * s/p fall * hypokalemia, hypophosphatemia, hypomagnesemia * LFT derangement likely from etoh dependence * Fatty liver Plan - Librium as per psych with holding parameters - electrolyte repletion, k, mag, phos - Thiamine folate and multivitamins - DVT prophylaxis at all times Plan for discharge tomorrow with psychiatry follow-up [facility]
[2016-03-29 16:00] VITALS: BP 120/80
--- NOTE | 2016-03-29 20:05 | NUR ---
Following patients progress as it relates to Roman's detox. Case reviewed with multidisciplinary team this am, including psychiatry. It was reported that patient had spoken to his dad and there were no issues with his return home. Plan was to complete librium taper tomorrow and discharge patient home with IOP intake here on Sunday morning. However, late this afternoon patient had visit from family: father, brother and aunt. Family wants patient to go to [facility] for residential treaatment, and family is prepared to pay for it. For Roman, the risks of deciding against this are that he will NOT be allowed to return home. Other treatment modalities discussed -namely [facility] where Roman could participate in the [facility] with residential living. Roman seems slightly more amenable to that plan, but only slightly. I have reassurred the patient and the family that I will assist the patient with whichever plan he is interested in. Follow.
[2016-03-30] VITALS (7 sets, daily range): BP systolic 116–146; BP diastolic 70–80
--- NOTE | 2016-03-30 00:21 | NUR ---
PT AWAKE AND ALERT, DENIES PAIN AT THIS TIME. SATURATION 96% ON RA, LUNGS SOUND CLEAR.
[2016-03-30 05:40] LABS: ABSOLUTE BASOPHIL COUNT 0.1 /CUMM (0.0-0.2); ABSOLUTE EOSINOPHIL COUNT 0.1 /CUMM (0.0-0.7); ABSOLUTE GRANULOCYTE CT 2.3 /CUMM (1.4-6.5); ABSOLUTE LYMPH COUNT 1.9 /CUMM (1.2-3.4); ABSOLUTE MONOCYTE COUNT 0.9 /CUMM (0.10-0.60); BASOPHIL % 1.2 % (0.0-2.0); GRANULOCYTE % 43.9 % (42.2-75.2); HEMATOCRIT 33.4 % (42-52); MEAN CORPUSCULAR HGB 33.9 PG (27.0-31.0); MEAN CORPUSCULAR HGB CONC 33.6 G/DL (33.0-37.0); MEAN PLATELET VOLUME 6.9 FL (7.4-10.4); PLATELET COUNT 460 /CUMM (130-400); RBC DISTRIBUTION WIDTH 17.4 % (11.5-14.5); RED BLOOD CELL CT 3.31 /CUMM (4.70-6.10); WHITE BLOOD CELL COUNT 5.3 /CUMM (4.8-10.8)
--- NOTE | 2016-03-30 07:45 | PN- Housestaff ---
Subjective Follow-up For: Alcohol withdrawl Complaints: no complaints Tele-Events Since Last Visit: No significant events overnight. Subjective: I saw and examined the patient today, he is alert and oriented. Awaiting a call from [facility] inpatient program. He reports that he slept well without any significant events overnight. Review of Systems Constitutional: Reports: no symptoms, see HPI. Cardiovascular: Reports: chest pain. Skin: Reports: erythema. Comments: ROS negative except the above. Objective Last 24 Hrs of Vital Signs/I&O Vital Signs Date Time Temp Pulse Resp B/P Pulse O2 O2 Flow FiO2 Ox Delivery Rate 03/30 1633 97.8 88 20 124/78 98 Room Air 03/30 1349 97.7 85 18 130/80 97 Room Air 03/30 0800 98.7 75 20 146/80 03/30 0800 98.7 75 20 146/80 94 Room Air 03/30 0600 116/70 03/30 0400 120/70 03/30 0000 97.2 78 20 118/70 03/30 0000 96 Room Air 03/30 0000 97.2 78 20 118/70 96 Room Air Intake & Output 03/30 1600 03/30 0800 03/30 0000 Intake Total 0 400 360 Output Total 0 Balance 0 400 360 Intake, Oral 0 400 360 Output, Urine 0 Physical Exam General Appearance: Alert, Oriented X3, Cooperative Skin: significant bruising in the left axillary region. HEENT: PERRLA, bruise over the left eye region Neck: Supple, No JVD Cardiovascular: Regular Rate, Normal S1, Normal S2, No Murmurs Lungs: Clear to Auscultation, Normal Air Movement Abdomen: Normal Bowel Sounds, Soft, No Tenderness Neurological: Normal Gait, Normal Speech, Strength at 5/5 X4 Ext Extremities: No Clubbing, No Cyanosis, No Edema Vascular: Pulses Symmetrical Current Medications: Current Medications Sig/Elias Start time Last Medication Dose Route Stop Time Status Admin Chlordiazepoxide HCl 25 MG BID 03/30 1000 AC 03/30 PO 09 Chlordiazepoxide HCl 25 MG ONCE ONE 03/29 2229 CAN PO 03/29 2230 Chlordiazepoxide HCl 50 MG ONCE ONE 03/29 2229 DC 03/29 PO 03/29 Chlordiazepoxide HCl 50 MG Q12 03/29 2199 DC PO 03/30 1001 Chlordiazepoxide HCl 25 MG BID 01/11 2200 DC PO Chlordiazepoxide HCl 25 MG Q4P PRN 03/28 0745 AC PO Folic Acid 1 MG DAILY 03/25 1615 AC 03/30 PO 0918 Heparin Sodium 5,000 UNIT Q8 03/27 0910 AC 03/30 (Porcine) SC 1319 Magnesium Oxide 400 MG ONE ONE 03/30 0745 DC 03/30 PO 03/30 0746 0918 Methyl Salicylate 1 CORY TIDPRN PRN 03/30 0530 03/30 TOP 1631 Multivitamins 1 TAB DAILY 03/25 1615 AC 03/30 PO 0918 Nicotine 14 MG DAILY 03/30 1408 AC 03/30 TOP 1631 Thiamine HCl 100 MG DAILY 03/25 1615 AC 03/30 PO 0918 Last 24 Hrs of Lab/Noah Results Last 24 Hrs of Labs/Mics: Laboratory Tests 03/30/16 0515: Anion Gap 14, Estimated GFR > 60, Glucose 101 H, Calcium 10.0, Phosphorus 4.9 H, Magnesium 1.9, Total Bilirubin 0.6, AST 74 H, ALT 105 H, Albumin 3.9, CBC w Diff NO MAN DIFF REQ, RBC 3.31 L, MCV 101.0 H, MCH 33.9 H, RDW 17.4 H, MPV 6.9 L, Gran % 43.9, Lymphocytes % 36.1, Monocytes % 17.8 H, Eosinophils % 1.0, Basophils % 1.2, Absolute Granulocytes 2.3, Absolute Lymphocytes 1.9, Absolute Monocytes 0.9 H, Absolute Eosinophils 0.1, Absolute Basophils 0.1, PUBS MCHC 33.6 Assessment/Plan Assessment: 40- YO M with PMH of alcohol abuse and multiple previous hospital admissions for alcohol detox, alcohol withdrawal seizures, left upper extremity spontaneous DVT (was on Coumadin for 1 year), history of hypertension not taking any antihypertensive now (was prescribed HCTZ and amlodipine), history of back surgery for herniated disc was brought in by sister and Aunt for alcohol detox requiring Ativan drip. Assesment and Plan: Alcohol Withdrawl * Currently stable. * On librium 25mg Q12 PO along folic acid, multivitamin and high dose thiamine. * Librium 25mg Q4 PRN. * social work consult regarding after care issues. * Going for inpatient program from hospital tomorrow Pancytopenia * 2/2 alcoholism * H&H today is 11.1/33 with platelet count of 460, white count of 5.3. * Normal Vit B12, Folate Persistent hypomagnesemia * Mag of 1.9 today * 2/2 alcoholism * Repleted. Transaminitis * trending down with AST/ALT of 74/105 * RUQ US shows fatty infiltration of liver (alcoholic picture) * Hepatitis panel negative. Elevated lipase * 2/2 alcoholism versus traumatic * repeat lipase level of 491. DVT Prophylaxis * On SC heparin Code status * Full code Diet * Regular diet Problem List: 1. Alcohol withdrawal syndrome 2. Alcoholism 3. Alcoholic hepatitis Pain Ratin Pain Location: left axillary region Pain Goal: Pain 4 or less Pain Plan: Tylenol PRN Tomorrow's Labs & Rationales: BEP and CBC
--- NOTE | 2016-03-30 09:18 | PN- Pulmonary ---
Subjective HPI/Critical Care Issues: pt seen and examined anticipating dc in pm no new events comfortable completing librium taper Objective Current Medications: Current Medications Sig/Elias Start time Last Medication Dose Route Stop Time Status Admin Chlordiazepoxide HCl 25 MG BID 03/30 1000 AC PO Chlordiazepoxide HCl 25 MG ONCE ONE 03/29 2230 CAN PO 03/29 2231 Chlordiazepoxide HCl 50 MG ONCE ONE 03/29 2230 DC 03/29 PO 03/29 2231 2222 Chlordiazepoxide HCl 50 MG Q12 03/29 2200 DC PO 03/30 1001 Chlordiazepoxide HCl 25 MG BID 03/29 2200 DC PO Chlordiazepoxide HCl 50 MG Q8 03/28 2200 DC 03/29 PO 0549 Chlordiazepoxide HCl 25 MG Q4P PRN 03/28 0745 AC PO Folic Acid 1 MG DAILY 03/25 1615 AC 03/29 PO 1207 Heparin Sodium 5,000 UNIT Q8 03/27 0910 AC 03/30 (Porcine) SC 0539 Magnesium Oxide 400 MG ONE ONE 03/30 0745 DC PO 03/30 0746 Magnesium Oxide 400 MG ONE ONE 03/29 1345 DC 03/29 PO 03/29 1346 1353 Methyl Salicylate 1 CORY TIDPRN PRN 03/30 0530 AC 03/30 TOP 0539 Multivitamins 1 TAB DAILY 03/25 1615 AC 03/29 PO 1207 Thiamine HCl 100 MG DAILY 03/25 1615 AC 03/29 PO 1207 Vital Signs & I&O Last 24 Hrs of Vitals and I&O: Vital Signs Date Time Temp Pulse Resp B/P Pulse O2 O2 Flow FiO2 Ox Delivery Rate 03/30 799 98.7 75 20 146/80 03/30 0800 98.7 75 20 146/80 94 Room Air 03/30 0600 116/70 03/30 0400 120/70 03/30 0000 97.2 78 20 118/70 03/30 0000 96 Room Air 03/30 0000 97.2 78 20 118/70 96 Room Air 03/29 1600 98.6 80 16 120/80 03/29 1600 98.6 80 16 120/80 98 Room Air Intake & Output 03/30 1600 03/30 0800 03/30 0000 Intake Total 400 360 Output Total Balance 400 360 Intake, Oral 400 360 Exam Other Physical Findings: General - awake HEENT - ecchymosis around the eyes Cardiovascular - S1, S2 Lungs - clear to auscultation bilaterally Abdomen - soft, bowel sounds positive, no tenderness Extremities - without edema or cyanosis Results Last 24 Hrs of Lab Results: Laboratory Tests 03/30/16 0515: Anion Gap 14, Estimated GFR > 60, Glucose 101 H, Calcium 10.0, Phosphorus 4.9 H, Magnesium 1.9, Total Bilirubin 0.6, AST 74 H, ALT 105 H, Albumin 3.9, CBC w Diff NO MAN DIFF REQ, RBC 3.31 L, MCV 101.0 H, MCH 33.9 H, RDW 17.4 H, MPV 6.9 L, Gran % 43.9, Lymphocytes % 36.1, Monocytes % 17.8 H, Eosinophils % 1.0, Basophils % 1.2, Absolute Granulocytes 2.3, Absolute Lymphocytes 1.9, Absolute Monocytes 0.9 H, Absolute Eosinophils 0.1, Absolute Basophils 0.1, PUBS MCHC 33.6 Impression/Plan Impression/Plan Impression/Plan: Impression 40 year old man * etoh withdrawal/dependence * chest wall hematoma, left eye bruise * s/p fall * hypokalemia, hypophosphatemia, hypomagnesemia * LFT derangement likely from etoh dependence * Fatty liver Plan - Librium taper, psychiatry recommendations are greatly appreciated - Thiamine folate and multivitamins - DVT prophylaxis at all times Plan for discharge pm GM hold
[2016-03-30] MEDS ORDERED: ONE DAILY MULT1 EAC2 PO (09:58)
--- NOTE | 2016-03-30 13:15 | Discharge Summary ---
Visit Information Visit Dates Admission Date: 03/24/16 Discharge Date: 03/31/16 Hospital Course Course Attending Physician: KAYLEE JAMES MD Primary Care Physician: PATIENT HAS NO PRIMARY CARE DR Consulting Request: Consulting Specialty: Psychiatry Consulting Physician: Dr. Chelsie HOLLY Reason for Consult: Alcohol withdrawl Hospital Course: 40-year-old male with past medical history of alcohol abuse and multiple previous hospital admissions for alcohol detox, alcohol withdrawal seizures, left upper extremity spontaneous DVT (was on Coumadin for 1 year), history of hypertension not taking any antihypertensive now (was prescribed HCTZ and amlodipine), history of back surgery for herniated disc was brought in by sister and Aunt for alcohol detox requiring Ativan drip. He is here after a fall resulting in hematoma of left chest wall and left eye bruise. ER vitals T of 98, MI 128, BP 163/118mmHg, on room air. Labs are classic for an alcoholic patient Pancytopenic with white count of 4.8, H&H Of 10.4/30.5, MCV of 98, Platelets of 70 AST/ALT - 286/120, Total bili of 1.5. mag of 1.6 He is admitted to ICU and got treated for the following conditions Alcohol Withdrawl He is started on a ativan drip and tapered it according to CIWA score. He is started on a librium taper starting 50mg Q6, then Q8, Q12. He was placed on 25mg librium Q12 before the day of discharge. He is going to transfer to inpatient program from [place] as per the family request with the help of our social contact worker. Pancytopenia Most porbably 2/2 alcoholism. H&H today is 11.1/33 with platelet count of 460, white count of 5.3. Normal Vit B12, Folate Persistent hypomagnesemia Patient is having persistent low magnesium. he may needs scheduled doses of magnesium as he is receiving mag every day here. Transaminitis AST and ALT at admission were - 286/120, with a total bilirubin of 1.5. They gradually trended down with today being 74/105. RUQ US shows fatty infiltration of liver (alcoholic picture). His Hepatitis panel negative. Chest wall bruise It is getting better everyday, still visible but resolving. CXR is negative for any internal injury. Elevated lipase Most likely 2/2 alcoholism, repeat lipase level of 491. DVT Prophylaxis * On SC heparin Diet * After passing swallow evaluation started on a Regular diet Complications: none Allergies: Coded Allergies: kiwi (MOUTH BUBBLES UP PER PT 03/24/16) latex (RED, ITCHY 03/24/16) Significant Procedures: none Pertinent Lab Results: as above Disposition Summary Disposition Principal Diagnosis: Alcohol withdrawl Additional Diagnosis: Transaminitis Discharge Disposition: inpatient program Discharge Instructions General Discharge Information Code Status: Full Code Patient's Diet: regular diet Patient's Activity: activity as tolerated Follow-Up Instructions/Appts: Please follow up with psychiatry as per the inpatient program schedule. Medications at Discharge Discharge Medications: Continue taking these medications: Aspirin (Ecotrin*) 81 MG TABLET. 1 Tablet ORAL DAILY Comments: PER PT NOT GIVEN IN HOSPITAL Cholecalciferol (Vitamin D3) (Unknown Strength) TABLET Unknown Dose ORAL DAILY Comments: PER PT NOT GIVEN IN HOSPITAL Cyanocobalamin (Vitamin B-12) (Unknown Strength) TABLET Unknown Dose ORAL DAILY Comments: PER PT NOT GIVEN IN HOSPITAL Ascorbate Calcium (Vitamin C) (Unknown Strength) TABLET Unknown Dose ORAL DAILY Comments: PER PT NOT GIVEN IN HOSPITAL Start taking the following new medications: Multivitamin (One Daily Multivitamin) 1 EACH TABLET 1 Tablet ORAL DAILY Qty = 30 No Refills Comments: Last Taken:03/31/16 Time: 9 AM Copies To: KEEGAN BUSTAMANTE APRN, APRN, STEPHEN F Attending MD Review Statement Documenting Attending: KAYLEE JAMES MD
--- NOTE | 2016-03-30 13:54 | NUR ---
PATIENT ARRIVED TO FLOOR FROM [facility]; A/OX3; RA; INDEP; PAIN /10 TO L SHOULDER AND REQUESTING ICE PACK FOR SHOULDER; BRUISING NOTED TO R SHOULDER AND UNDER LEFT EYE; PATIENT STATES "I FELL AT HOME, I EVEN KNOCKED OUT MY TOOTH."; VITALS STABLE (SEE INTERVENTION); PATIENT ORIENTED TO ROOM AND CALL AMAYA AND INSTRUCTED TO STAY IN HOSPITAL GOWN AND NOT TO LEAVE FLOOR WHEN AMBULATING; BELONGINGS [facility] X 2 AND [facility] PATIENT; WILL CONTINUE TO MONITOR PATIENT;
--- NOTE | 2016-03-30 15:03 | NUR ---
Patient has reluctantly agreed to and has been accepted for admission to [facility] in [place], [place] for admission tomorrow. With Roman's permission and at his request appropriate clinical information has been FAXED to [facility] and has been approved. Case discussed with ICU team prior to transfer to [facility]; 2 more doses of librium until taper is finished. Roman has made transportation arrangements (his aunt), and his father has been notified. Patient should be discharged tomorrow morning after dose of librium. A discharge summary will be needed and I will FAX it to facility. Please call me if other social work needs arise.
--- NOTE | 2016-03-30 22:03 | Patient Discharge Instructions ---
Discharge Instructions General Discharge Information You were seen/treated for: alcohol withdrawl You had these procedures: none Diet Continue normal diet: Yes Activity Full Activity/No Limits: Yes Acute Coronary Syndrome Inclusion Criteria At DC or during hospital stay patient has or had the following: ACS DIAGNOSIS No Discharge Core Measures Meds if any: Prescribed or Continued at Discharge Meds if any: NOT Prescribed or Continued at Discharge Congestive Heart Failure Inclusion Criteria At DC or during hospital stay patient has or had the following: CHF DIAGNOSIS No Discharge Core Measures Meds if any: Prescribed or Continued at Discharge Meds if any: NOT Prescribed or Continued at Discharge Cerebrovascular accident Inclusion Criteria At DC or during hospital stay patient has or had the following: CVA/TIA Diagnosis No Discharge Core Measures Meds if any: Prescribed or Continued at Discharge Meds if any: NOT Prescribed or Continued at Discharge Venous thromboembolism Inclusion Criteria VTE Diagnosis No VTE Type NONE VTE Confirmed by (Test) NONE Discharge Core Measures - Per Current guidelines, there needs to be overlap - treatment for the first 5 days of Warfarin therapy. - If discharged on Warfarin prior to 5 days of - overlap therapy, the patient will need to be - assessed for post discharge needs including - *Post discharge parental anticoagulation - *Warfarin and/or parental anticoagulation education - *Follow up date to check INR post discharge At least 5 days overlap therapy as Inpatient No Meds if any: Prescribed or Continued at Discharge Note: Overlap Therapy is Warfarin and Anticoagulant Meds if any: NOT Prescribed or Continued at Discharge
[2016-03-31] VITALS: BP 116/76
[2016-03-31 08:12] LABS: ABSOLUTE BASOPHIL COUNT 0.1 /CUMM (0.0-0.2); ABSOLUTE EOSINOPHIL COUNT 0.1 /CUMM (0.0-0.7); ABSOLUTE GRANULOCYTE CT 2.5 /CUMM (1.4-6.5); ABSOLUTE MONOCYTE COUNT 0.8 /CUMM (0.10-0.60); BASOPHIL % 1.3 % (0.0-2.0); EOSINOPHIL % 1.4 % (0-5); GRANULOCYTE % 45.5 % (42.2-75.2); HEMATOCRIT 33.3 % (42-52); MEAN CORPUSCULAR HGB 34.3 PG (27.0-31.0); MEAN CORPUSCULAR HGB CONC 33.8 G/DL (33.0-37.0); MEAN CORPUSCULAR VOLUME 101.5 FL (80.0-94.0); MEAN PLATELET VOLUME 7.1 FL (7.4-10.4); PLATELET COUNT 442 /CUMM (130-400); RBC DISTRIBUTION WIDTH 16.7 % (11.5-14.5); RED BLOOD CELL CT 3.28 /CUMM (4.70-6.10); WHITE BLOOD CELL COUNT 5.4 /CUMM (4.8-10.8)
[2016-03-31 08:30] VITALS: BP 126/70
--- NOTE | 2016-03-31 08:49 | PN- Housestaff ---
Subjective Follow-up For: Alcohol withdrawl Subjective: Patient seen and examined this morning. He was lying in bed in mild distress complaining of pain in his left shoulder. Remains afebrile, the right is stable will get x-ray of the left shoulder if no fracture patient will be discharged. Review of Systems Constitutional: Denies: chills, fever. Cardiovascular: Denies: chest pain, palpitations. Respiratory: Denies: cough, short of breath. Gastrointestinal: Denies: abdominal pain, constipation, diarrhea, nausea, vomiting. Genitourinary: Denies: dysuria, frequency. Objective Last 24 Hrs of Vital Signs/I&O Vital Signs Date Time Temp Pulse Resp B/P Pulse O2 O2 Flow FiO2 Ox Delivery Rate 03/31 0830 97.6 86 18 126/70 96 Room Air 03/31 0000 98.4 83 20 116/76 03/30 2338 98.4 83 20 116/76 98 Room Air Intake & Output 03/31 1600 03/31 0800 03/31 0000 Intake Total 200 480 Output Total 700 Balance -500 480 Intake, Oral 200 480 Output, Urine 700 Physical Exam General Appearance: Alert, Oriented X3, Cooperative, No Acute Distress Cardiovascular: Regular Rate, Normal S1, Normal S2, No Murmurs Lungs: Clear to Auscultation, Normal Air Movement Abdomen: Normal Bowel Sounds, Soft, No Tenderness Extremities: rt sided ant chest bruise, left shoulder tenderness Current Medications: Current Medications Sig/Elias Start time Last Medication Dose Route Stop Time Status Admin Acetaminophen 650 MG ONCE ONE 03/31 1330 DC 03/31 PO 03/31 1331 1334 Chlordiazepoxide HCl 25 MG BID 03/30 1000 DCD 03/31 PO 0852 Chlordiazepoxide HCl 25 MG Q4P PRN 03/28 0745 DCD PO Folic Acid 1 MG DAILY 03/25 1615 DCD 03/31 PO 0852 Heparin Sodium 5,000 UNIT Q8 03/27 0910 DCD 03/31 (Porcine) SC 0632 Methyl Salicylate 1 CORY TIDPRN PRN 03/30 0530 DCD 03/31 TOP 0849 Multivitamins 1 TAB DAILY 03/25 1615 DCD 03/31 PO 0852 Nicotine 14 MG DAILY 03/30 1408 DCD 03/31 TOP 0851 Patient Medication 1 ED .STK-MED ONE 03/31 1348 IL Teaching ED 03/31 1349 Thiamine HCl 100 MG DAILY 03/25 1615 DCD 03/31 PO 0853 Last 24 Hrs of Lab/Noah Results Last 24 Hrs of Labs/Mics: Laboratory Tests 03/31/16 0715: Anion Gap 13, Estimated GFR > 60, BUN/Creatinine Ratio 13.3, Magnesium 2.0, CBC w Diff NO MAN DIFF REQ, RBC 3.28 L, MCV 101.5 H, MCH 34.3 H, RDW 16.7 H, MPV 7.1 L, Gran % 45.5, Lymphocytes % 36.7, Monocytes % 15.1 H, Eosinophils % 1.4, Basophils % 1.3, Absolute Granulocytes 2.5, Absolute Lymphocytes 2.0, Absolute Monocytes 0.8 H, Absolute Eosinophils 0.1, Absolute Basophils 0.1, PUBS MCHC 33.8 Assessment/Plan Assessment: 40- YO M with PMH of alcohol abuse and multiple previous hospital admissions for alcohol detox, alcohol withdrawal seizures, left upper extremity spontaneous DVT (was on Coumadin for 1 year), history of hypertension not taking any antihypertensive now (was prescribed HCTZ and amlodipine), history of back surgery for herniated disc was brought in by sister and Aunt for alcohol detox requiring Ativan drip. Assesment and Plan: Alcohol Withdrawl * Currently stable. * On librium 25mg Q12 PO along folic acid, multivitamin and high dose thiamine. * Librium 25mg Q4 PRN. * social work consult regarding after care issues. * Going for inpatient program from hospital today Pancytopenia * 2/2 alcoholism * H&H today is 11.1/33 with platelet count of 460, white count of 5.3. * Normal Vit B12, Folate Persistent hypomagnesemia * Mag of 1.9 today * 2/2 alcoholism * Repleted. Transaminitis * trending down with AST/ALT of 74/105 * RUQ US shows fatty infiltration of liver (alcoholic picture) * Hepatitis panel negative. Elevated lipase * 2/2 alcoholism versus traumatic * repeat lipase level of 491. DVT Prophylaxis * On SC heparin Code status * Full code Diet * Regular diet Problem List: 1. Alcoholic hepatitis 2. Alcohol abuse 3. Alcohol withdrawal syndrome Pain Ratin Pain Location: Left shoulder Pain Goal: Remain pain free Pain Plan: Tylenol Tomorrow's Labs & Rationales: None patient to be discharged Consulting Request: Consulting Specialty: Psychiatry Consulting Physician: Dr. Chelsie HOLLY Reason for Consult: Alcohol withdrawl
--- NOTE | 2016-03-31 11:03 | RADIOLOGY REPORT ---
EXAMINATION: XR LEFT SHOULDER XR LEFT RIBS XR RIGHT RIBS CLINICAL INFORMATION: 40-year-old male with left shoulder pain. History of fall. Hematoma collection of right upper chest wall. COMPARISON: CXR from 03/25/2016 TECHNIQUE: Left shoulder, 3 views Left ribs, 3 views Right ribs with chest, 4 views FINDINGS: Left shoulder: Bones, joints and soft tissues are normal. Left ribs: The ribs are unremarkable. There is no evidence of an acute, displaced left rib fracture. The left lung is well expanded and clear. No pneumothorax or pleural effusion. Right ribs: There is no evidence of an acute, displaced right rib fracture. There is no gross soft tissue swelling of the chest wall. The right lung is well expanded and clear; no pneumothorax or pleural effusion. IMPRESSION: 1. Left shoulder is normal. 2. No acute cardiopulmonary abnormalities. 3. No evidence of an acute, displaced right or left rib fracture.
[2016-03-31] MEDS ORDERED: TRAMADOL HCL50 M1 PO (11:52)
[2016-03-31] MEDS ORDERED: ACETAMINOPHEN500 M4 PO (12:02)
--- NOTE | 2016-03-31 17:12 | PN- Att Addend ---
Attending MD Review Statement Attending Statement Attending MD Statement: examined this patient, discuss w/resident/PA/EXPERIMENTAL PSYCHOLOGIST, agreed w/resident/PA/EXPERIMENTAL PSYCHOLOGIST, reviewed EMR data (avail), discussed w/nursing, discussed w/ case mgmt Attending Assessment/Plan: Patient seen and examined at bedside. Given the patient's left shoulder pain and right sided chest pain, rib series x-ray as well as left shoulder x-rays were obtained. These showed no fractures. Patient is being discharged in stable condition to inpatient rehabilitation for alcohol. Please see the discharge summary for more details.
== END 2016-03-31 14:07 | disposition other institution (70) | DRG 775 ==
LOC: ERH 11:51 → ENPENDDIS 18:20 → ERHI 18:20 → CRI 18:20 → ERHI 19:49 → CRI 21:36 → 2NB 03-30 13:48
PROVIDERS: Emergency Medicine; Internal Medicine; Internal Medicine Infectious Disease; ADMIT Student in an Organized Health Care Education/Training Program
DX: F10.239 Alcohol dependence with withdrawal, unspecified (principal); K70.10 Alcoholic hepatitis without ascites; Y90.0 Blood alcohol level of less than 20 mg/100 ml; Z86.718 Personal history of other venous thrombosis and embolism; R56.9 Unspecified convulsions; I10 Essential (primary) hypertension; F17.210 Nicotine dependence, cigarettes, uncomplicated; D53.9 Nutritional anemia, unspecified; D69.6 Thrombocytopenia, unspecified; S20.211A Contusion of right front wall of thorax, initial encounter; W19.XXXA Unspecified fall, initial encounter; E87.6 Hypokalemia; E83.42 Hypomagnesemia; E83.39 Other disorders of phosphorus metabolism
CPT/HCPCS: 2NBSP; 84133; 84300; CCU; 36415; 71100-LT; 71100-RT; 73030-LT; 80307; 81001; 82436; 82570; 93005; 93010; 96374; 96376; 99233; G0480; J1644; J2060; J3490; J7040; J7042; J7060

== ENCOUNTER 2016-06-21 20:37 | Emergency (ER) | payer OTHER ==
[~2016-06-21] VITALS: Ht 177.8 cm; Wt 77.1 kg
[~2016-06-21 20:37] MED LIST changes: +ACETAMINOPHEN500 M4 PO; +ASPIRIN EC81 M1 PO; +ONE DAILY MULT1 EAC2 PO; +TRAMADOL HCL50 M1 PO; +VITAMIN B-121000 MC3 PO; +VITAMIN C500 M6 PO; +VITAMIN D31000 UNI2 PO
--- NOTE | 2016-06-21 21:05 | ED PSYCHIATRIC COMPLAINT ---
History of Present Illness General Chief Complaint: ETOH/Drug Related Complaint Stated Complaint: DETOX Source: patient, old records Exam Limitations: intoxication Vital Signs & Intake/Output Vital Signs & Intake/Output Vital Signs Date Time Temp Pulse Resp B/P Pulse O2 O2 Flow FiO2 Ox Delivery Rate 06/22 0958 98.1 108 22 129/65 98 / 0957 98.1 108 20 129/65 04/ 0751 96.9 112 20 127/78 96 Room Air ED Intake and Output 06/23 0000 06/22 1200 Intake Total 30 Output Total Balance 30 Intake, Oral 30 Allergies Coded Allergies: kiwi (MOUTH BUBBLES UP PER PT 06/21/16) latex (RED, ITCHY 06/21/16) Reconcile Medications Acetaminophen 500 MG TABLET 1 TAB PO Q6 PRN SHOULDER PAIN Ascorbate Calcium (Vitamin C) (Unknown Strength) TABLET (Unknown Dose) PO DAILY SUPPLEMENT (Reported) Aspirin (Ecotrin*) 81 MG TABLET.DR 1 TAB PO DAILY HEART/BLOOD (Reported) Cholecalciferol (Vitamin D3) (Unknown Strength) TABLET (Unknown Dose) PO DAILY SUPPLEMENT (Reported) Cyanocobalamin (Vitamin B-12) (Unknown Strength) TABLET (Unknown Dose) PO DAILY SUPPLEMENT (Reported) Multivitamin (One Daily Multivitamin) 1 EACH TABLET 1 TAB PO DAILY alcohol withdrawl Triage Note: RECEIVED 41 YO MALE REQUESTING DETOX FROM ALCOHOL. PT DRINKS APPROX 16 SHOTS PER DAY. PT REPORTS WITHDRAWL SEIZURES AND BAD TREMORS. PT DENIES SI/HI. PT LAST DETOXED A FEW MONTHS AGO. Triage Nurses Notes Reviewed? yes Onset: Gradual Duration: getting worse Timing: recent history Severity: severe Severity Numbers: 10 HPI: Patient is a 41-year-old male with a past medical history of alcohol abuse and dependency, alcohol withdrawal seizures, left upper extremity DVT, hypertension, who was recently admitted to [facility] in March 2016 for alcohol dependency all where he states that he then was admitted to [facility] detox inpatient facility where he spent sober since however on of last week, 6 days ago patient followed an old bottle of alcohol and began drinking in which patient has drank alcohol everyday since. Patient is requesting alcohol detoxication. Patient is quite remorseful and KNOWS that he "screwed up". Patient states in the last year he has had 1 seizure from withdrawal from alcohol, patient denies any suicidal or homicidal ideation. (CAMERON SINGLETON) Past History Travel History Traveled to [place] past 21 day No Medical History Any Pertinent Medical History? see below for history Neurological: seizure EENT: NONE Cardiovascular: hypertension, History of blood clot, indicates left clavicle; was on warfarin, now on ASA 81 mg daily. Respiratory: NONE Gastrointestinal: NONE Hepatic: NONE Renal: NONE Musculoskeletal: disk herniation Psychiatric: NONE Endocrine: NONE Blood Disorders: DVT RT UPPER SHOULDER 1992 Cancer(s): NONE FASHION PHOTOGRAPHER/Reproductive: NONE History of MRSA: No History of VRE: No History of CDIFF: No Surgical History Surgical History: DISCECTOMY Psychosocial History Who do you live with Patient/Self Services at Home None What is your primary language Gabonese Tobacco Use: Current Daily Use Daily Tobacco Use Amount/Type: => 5 Cigarettes daily Family History Family History, If Any: Relation not specified for: *No pertinent family history Hx Contributory? No (CAMERON SINGLETON) Review of Systems Review of Systems Constitutional: Reports: no symptoms. EENTM: Reports: no symptoms. Respiratory: Reports: no symptoms. Cardiovascular: Reports: no symptoms. GI: Reports: no symptoms. Genitourinary: Reports: no symptoms. Musculoskeletal: Reports: no symptoms. Skin: Reports: no symptoms. Neurological/Psychological: Reports: see HPI. Hematologic/Endocrine: Reports: no symptoms. Immunologic/Allergic: Reports: no symptoms. All Other Systems: Reviewed and Negative (CAMERON SINGLETON) Physical Exam Physical Exam General Appearance: no apparent distress, comfortable, intoxicated Neurological/Psychiatric: no motor/sensory deficits, calm Appearance/Memory/Insight: appropriate appearance, appropriate insight, denies illness Behavoir/Eye Contact/Speech: cooperative, normal speech, good eye contact Thoughts/Hallucinations: no apparent hallucination Comments: HEENT: Normal EENT exam, extraocular motion intact, no nystagmus. Pupils equally round and reactive to light and accommodation. Nose is atraumatic. External auditory canal and Tympanic membranes clear. Pharynx normal. No swelling or edema. Neck: Supple, no lymphadenopathy, normal range of motion without pain or tenderness Back: Nontender, no CVA tenderness. Cardiovascular: Regular rate and rhythms no murmurs rubs or gallops, normal JVP Respiratory: Chest nontender. No respiratory distress.breath sounds clear to auscultation bilaterally Abdomen: Soft, nontender nondistended, no appreciable organomegaly. Normal bowel sounds. No ascites Extremity: No edema, no calf tenderness to palpation, normal and equal pulses. Neuro: Alert oriented x3, motor sensory normal, cranial nerves II through XII grossly intact. Skin: No appreciable rash on exposed skin, skin is warm and dry. Psych: Mood and affect is normal, memory and judgment is normal. SAD PERSONS Done? patient not suicidal (ARI BURDEN,CAMERON) Progress Differential Diagnosis: drug intoxication, drug overdose, drug withdrawal, electrolyte abnormality, encephalitis, hypoglycemia, hypothyroidism, IC hem/mass /tumor, meningitis Plan of Care: Orders Procedure Date/time Status Regular Diet 06/22 B Active CIWA 06/21 2124 Active URINE DRUGS OF ABUSE 06/21 2124 Complete LIPASE 06/21 2124 Complete ETHANOL 06/21 2124 Complete COMPREHENSIVE METABOLIC PANEL 06/21 2124 Complete CBC WITHOUT DIFFERENTIAL 06/21 2124 Complete AMYLASE 06/21 2124 Complete Laboratory Tests 06/22/16 0113: Urine Opiates Screen < 100.00, Methadone Screen < 40, Barbiturate Screen < 60, Ur Phencyclidine Scrn < 6.00, Amphetamines Screen < 100, U Benzodiazepines Scrn < 85, Urine Cocaine Screen < 50, Urine Cannabis Screen < 5.00 06/21/162: Anion Gap 23 H, Estimated GFR > 60, BUN/Creatinine Ratio 18.3, Glucose 87, Calcium 10.0, Total Bilirubin 0.9, AST 462 H, ALT 336 H, Alkaline Phosphatase 83, Total Protein 8.9 H, Albumin 5.3 H, Globulin 3.6, Albumin/Globulin Ratio 1.5, Amylase 60, Lipase 347 H, CBC w Diff NO MAN DIFF REQ, RBC 5.80, MCV 93.5, MCH 31.5 H, RDW 13.3, MPV 7.0 L, Gran % 54.8, Lymphocytes % 38.5, Monocytes % 5.5, Eosinophils % 0.7, Basophils % 0.5, Absolute Granulocytes 4.0, Absolute Lymphocytes 2.8, Absolute Monocytes 0.4, Absolute Eosinophils 0.1, Absolute Basophils 0, PUBS MCHC 33.7, Serum Alcohol 361.0 06/22/2016 12:21:32 AM it was noted by me that nursing staff evaluated patient and current CIWA scoring is 0 However patient does have over 300 blood alcohol Patient will be continued to be evaluated for CIWA scoring and which all symptoms. Discussed hand off with Dr. KRAMER (CAMERON SINGLETON) Hand-Off Endorsed To: VICKY KRAMER MD Endorsed Time: 004 Pending: other (CIWA, ETOH ) (CAMERON SINGLETON) Hand-Off Endorsed To: LEVON RODRIGUEZ MD Endorsed Time: 0700 Pending: consult (CASE MANAGMENT HUSKY DETOX), other (VICKY KRAMER MD) Comments: Pt's CiWA score has remiened 0 throughout the night. Pt went to [facility] after last admission and remined sober until 5 days ago. At this point, he is stable for discharge. Roman states that he has an AA sponsor that he will reach out to. (LEVON RODRIGUEZ MD) Departure Departure Condition: Stable Clinical Impression Primary Impression: Alcohol dependence Secondary Impressions: Transaminitis Referrals: UNKNOWN (PCP/Family) Departure Forms: Customer Survey General Discharge Information (CAMERON SINGLETON) Departure Disposition: HOME OR SELF CARE Additional Instructions: Take Librium as prescribed. Do not drink any alcohol while taking Librium. Follow up with your sponsor and AA. Return for any concerns (LEVON RODRIGUEZ MD) Secondary Impressions: Transaminitis Referrals: UNKNOWN (PCP/Family) Departure Forms: Customer Survey General Discharge Information (CAMERON SINGLETON) Departure Disposition: HOME OR SELF CARE Additional Instructions: Take Librium as prescribed. Do not drink any alcohol while taking Librium. Follow up with your sponsor and AA. Return for any concerns (LEVON RODRIGUEZ MD)
[2016-06-21 22:00] LABS: ABSOLUTE BASOPHIL COUNT 0 /CUMM (0.0-0.2); ABSOLUTE EOSINOPHIL COUNT 0.1 /CUMM (0.0-0.7); ABSOLUTE LYMPH COUNT 2.8 /CUMM (1.2-3.4); ABSOLUTE MONOCYTE COUNT 0.4 /CUMM (0.10-0.60); BASOPHIL % 0.5 % (0.0-2.0); EOSINOPHIL % 0.7 % (0-5); GRANULOCYTE % 54.8 % (42.2-75.2); HEMATOCRIT 54.2 % (42-52); MEAN CORPUSCULAR HGB 31.5 PG (27.0-31.0); MEAN CORPUSCULAR HGB CONC 33.7 G/DL (33.0-37.0); MEAN CORPUSCULAR VOLUME 93.5 FL (80.0-94.0); PLATELET COUNT 196 /CUMM (130-400); RBC DISTRIBUTION WIDTH 13.3 % (11.5-14.5); WHITE BLOOD CELL COUNT 7.3 /CUMM (4.8-10.8)
[2016-06-22 09:58] VITALS: BP 129/65
== END 2016-06-22 10:26 ==
LOC: ERH 20:37
PROVIDERS: Physician Assistant
DX: F10.20 Alcohol dependence, uncomplicated (principal); R74.0 Nonspecific elevation of levels of transaminase and lactic acid dehydrogenase [LDH]
CPT/HCPCS: 80307; G0480